=== PATIENT | female | born 1930 ===

== ENCOUNTER 2016-09-24 09:50 | Emergency (ER) | payer MEDICARE, MEDICAID ==
[2016-09-24 09:51] VITALS: BMI 35.2
[2016-09-24 10:39] VITALS: BP 140/85; PULSE 64; RESP 18; TEMP 98.2; O2SAT 100
[2016-09-24 12:17] LABS: BASO # 0.1 K/uL (0.0-0.2); EOS # 0.1 K/uL (0.0-0.7); EOS % 0.8 % (0.0-4.0); LYMPH # 1.5 K/uL (1.0-4.3); LYMPH % 18.9 % (20.0-40.0); MEAN CELL VOLUME 88.2 fl (81.0-99.0); MEAN CORPUSCULAR HEMOGLOBIN 29.2 pg (27.0-31.0); MEAN CORPUSCULAR HGB CONC 33.1 g/dL (33.0-37.0); MEAN PLATELET VOLUME 8.8 fl (7.2-11.7); MONO # 0.6 K/uL (0.0-0.8); MONO % 7.5 % (0.0-10.0); NEUT # 5.8 K/uL (1.8-7.0); NEUT % 71.8 % (50.0-75.0); NRBC % 0.2 % (0.0-0.0); RED CELL DISTRIBUTION WIDTH 15.2 % (11.5-14.5); WHITE BLOOD COUNT 8.1 K/uL (4.8-10.8)
[2016-09-24 12:20] LABS: CHLORIDE 101 mmol/L (98-107); RBC URINE 2 /hpf (0-3); SODIUM 141 mmol/l (132-148); URINE BACTERIA RARE (<OCC); URINE BILIRUBIN NEGATIVE (NEGATIVE); URINE BLOOD NEGATIVE (NEGATIVE); URINE COLOR YELLOW (YELLOW); URINE GLUCOSE (UA) NEG (Normal); URINE KETONE NEGATIVE (NEGATIVE); URINE LEUKOCYTE ESTERASE NEG Leu/uL (Negative); URINE PROTEIN NEGATIVE (NEGATIVE); URINE UROBILINOGEN 0.2-1.0 mg/dL (0.2-1.0); WBC URINE < 1 /hpf (0-5)
[2016-09-24 12:21] LABS: POTASSIUM 4.4 MMOL/L (3.6-5.0)
[2016-09-24 12:23] LABS: ALKALINE PHOSPHATASE 85 U/L (38-126); ALT/SGPT 25 U/L (9-52); AST/SGOT 33 U/L (14-36); BILIRUBIN,TOTAL 0.4 mg/dl (0.2-1.3); BLOOD UREA NITROGEN 16 mg/dl (7-17); CALCIUM 9.3 mg/dL (8.4-10.2); CARBON DIOXIDE 30 mmol/L (22-30); GFR AFRICAN-AMERICAN > 60; GLUCOSE,RANDOM 102 mg/dL (65-105); TOTAL PROTEIN 8.2 G/DL (6.3-8.2)
--- NOTE | 2016-09-24 12:29 | CT ---
PROCEDURE: CT HEAD WITHOUT CONTRAST. HISTORY: Behavioral changes COMPARISON: Noncontrast head CT performed 05/11/15 TECHNIQUE: Axial computed tomography images were obtained through the head/brain without intravenous contrast. Radiation dose: Total exam DLP = 863.94 mGy-cm. This CT exam was performed using one or more of the following dose reduction techniques: Automated exposure control, adjustment of the mA and/or kV according to patient size, and/or use of iterative reconstruction technique. FINDINGS: HEMORRHAGE: No intracranial hemorrhage. BRAIN: Diffuse atrophy with prominence of the ventricles and sulci noted. No mass effect or edema. Intracranial atherosclerosis. Scattered periventricular and subcortical white matter hypodensities, which are nonspecific, but often seen with chronic microvascular ischemic disease. 6 mm right internal capsule chronic lacunar infarct. Please note that MRI with diffusion imaging is more sensitive in the detection of acute ischemic event. VENTRICLES: No hydrocephalus. CALVARIUM: Unremarkable. PARANASAL SINUSES: Unremarkable as visualized. No significant inflammatory changes. MASTOID AIR CELLS: Small opacification/fluid within the right mastoid air cells. The left mastoid air cells appear clear. OTHER FINDINGS: None. IMPRESSION: Generalized atrophy. Nonspecific white matter changes. 6 mm right internal capsule chronic lacunar infarct. Small opacification/fluid within the right mastoid air cyst. Correlate clinically for mastoiditis.
--- NOTE | 2016-09-24 12:36 | ED PDOC ---
HPI: Psych/Substance Abuse Time Seen by Provider: 09/24/16 11:24 Chief Complaint (Nursing): Psychiatric Evaluation Chief Complaint (Provider): pura weber Additional Complaint(s): 85yo F in ED sent by nader-bj for pura weber. According to caio-pt has been having odd behaviors and odd speech patterns-saying things that are not actually happening or exists ie her is hiding drugs in house or a woman is sleeping on her bed with her and her . pt is also wandering around by herself at night. no recent infxn, pt denies: fever, chills, dysuria hematuira, PAULA, vision changes , CP, SOB, no known family hx of dementia. no recent traumatic events in household.pt is alert and oriented Past Medical History Reviewed: Historical Data, Nursing Documentation, Vital Signs Vital Signs: Last Vital Signs Temp 98.2 F 09/24/16 10:06 Pulse 64 09/24/16 10:06 Resp 18 09/24/16 10:06 BP 140/85 09/24/16 10:06 Pulse Ox 100 09/24/16 10:06 - Medical History PMH: Anxiety, Arthritis, Asthma, Atrial Fibrillation, Diabetes, Gastritis, HTN, Hypercholesterolemia Denies: Anemia, HIV, Chronic Kidney Disease - Surgical History Surgical History: Appendectomy (from previous chart, patient is unsure of what surguries she has had), Cholecystectomy (from previous chart, patient is unsure of what surguries she has had), Hernia Repair - Family History Family History: States: Unknown Family Hx - Home Medications Home Medications: Ambulatory Orders Medication Instructions Recorded Metoprolol Tartrate [Lopressor] 50 mg PO DAILY 03/20/14 Sitagliptin Phosphate [Januvia] 100 mg PO DAILY 03/20/14 Ergocalciferol (Vitamin D2) 50,000 unit PO QWK 01/23/15 [Vitamin D2] Gabapentin [Neurontin] 400 mg PO DAILY 05/11/15 Metformin HCl 850 mg PO BID 05/11/15 Montelukast [Singulair] 10 mg PO DAILY 07/23/15 Omeprazole 20 mg PO DAILY 07/23/15 Pravastatin Sodium [Pravachol] 40 mg PO HS 07/23/15 Pregabalin [Lyrica] 50 mg PO HS 07/23/15 Valsartan [Diovan] 80 mg PO DAILY 07/23/15 Amlodipine Besylate [Norvasc] 5 mg PO BID 09/06/15 Mecobal/Levomefolat Ca/B6 Phos 1 tab PO BID 10/22/15 [Foltanx Tablet] Ciprofloxacin HCl [Cipro] 500 mg PO Q12 #20 tablet 10/23/15 Metronidazole [Flagyl] 500 mg PO Q8H #30 tablet 10/23/15 amLODIPine [Norvasc] 5 mg PO DAILY #0 tab 10/23/15 - Allergies Allergies/Adverse Reactions: Allergies Allergy/AdvReac Type Severity Reaction Status Date / Time No Known Allergies Allergy Verified 09/24/16 10:22 Review of Systems ROS Statement: Except As Marked, All Systems Reviewed And Found Negative Constitutional: Negative for: Fever, Chills Eyes: Negative for: Vision Change Cardiovascular: Negative for: Chest Pain, Palpitations Gastrointestinal: Negative for: Abdominal Pain Skin: Negative for: Rash Physical Exam - Reviewed Nursing Documentation Reviewed: Yes Vital Signs Reviewed: Yes - Physical Exam Appears: Positive for: Well, Non-toxic, No Acute Distress Head Exam: Positive for: ATRAUMATIC, NORMAL INSPECTION, NORMOCEPHALIC Skin: Positive for: Normal Color, Warm, DRY Eye Exam: Positive for: EOMI, Normal appearance, PERRL ENT: Positive for: Normal ENT Inspection Cardiovascular/Chest: Positive for: Regular Rate, Rhythm Respiratory: Positive for: CNT, Normal Breath Sounds Gastrointestinal/Abdominal: Positive for: Normal Exam, Bowel Sounds, Soft Back: Positive for: Normal Inspection Extremity: Positive for: Normal ROM Neurologic/Psych: Positive for: Alert, 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 Negative for: Motor/Sensory Deficits - Laboratory Results Result Diagrams: 09/24/16 11:30 09/24/16 11:30 - ECG ECG Rhythm: Positive for: Normal QRS, Normal ST Segment, Sinus Rhythm, Premature Ventricular Contraction O2 Sat by Pulse Oximetry: 100 - Progress ED Course And Treament: pt will get medical work-up and evaluated by crisis Medical Decision Making Medical Decision Making: pt cleared by crisis-dx with dementia under MD Arthur pt with unremarkable labs at this time. pt will f/u with her primary for continuous care Disposition - Clinical Impression Clinical Impression: Dementia - Patient ED Disposition Is Patient to be Admitted: No Counseled Patient/Family Regarding: Studies Performed, Diagnosis, Need For Followup - Disposition Disposition: Routine/Home Disposition Time: 15:27 Condition: STABLE Instructions: Dementia (ED)
--- NOTE | 2016-09-26 18:24 | CARD ---
APPROVED REPORT EKG Measurement Heart [id number] NM [id number] <Conclusion> Sinus rhythm with occasional premature ventricular complexes Otherwise normal ECG
== END 2016-09-24 15:39 | disposition home or self-care (01) ==
LOC: H.ER 09:50
DX: F03.90 Unspecified dementia, unspecified severity, without behavioral disturbance, psychotic disturbance, mood disturbance, and anxiety (principal); F41.9 Anxiety disorder, unspecified; I10 Essential (primary) hypertension; E11.9 Type 2 diabetes mellitus without complications; E78.00 Pure hypercholesterolemia, unspecified
CPT/HCPCS: 70450; 80053; 81003; 82948; 85025; 99285; G0480

== ENCOUNTER 2016-09-30 16:59 | Emergency (ER) | payer MEDICARE, MEDICAID ==
[2016-09-30 16:59] VITALS: BMI 35.2
[2016-09-30 17:09] VITALS: BP 167/81; RESP 18; O2SAT 98
--- NOTE | 2016-09-30 17:36 | ED PDOC ---
HPI: Psych/Substance Abuse Time Seen by Provider: 09/30/16 17:12 Chief Complaint (Nursing): Psychiatric Evaluation Chief Complaint (Provider): Psychiatric Evaluation History Per: Family History/Exam Limitations: clinical condition (hx of dementia) Onset/Duration Of Symptoms: Days (today) Suicide/Self Injury Attempted (Context): None Involuntary Hold By: None Additional Complaint(s): Sandra Stapleton is an 85 year old female, with a past medical history inclusive of HTN, hypercholesterolemia, atrial fibrillation, type II diabetes and dementia, who presents to the ED on 09/30/16, as brought in by her family, for a psychiatric evaluation after she had expressed thoughts of harming her today. HPI/ROS are limited/unreliable secondary to patient's baseline mental status. PMD: Preeti Damico Past Medical History Reviewed: Historical Data, Nursing Documentation, Vital Signs Vital Signs: Last Vital Signs Temp Pulse Resp 18 09/30/16 17:05 BP 167/81 H 09/30/16 17:05 Pulse Ox 98 09/30/16 17:05 - Medical History PMH: Anxiety, Arthritis, Asthma, Atrial Fibrillation, Diabetes (type II), Gastritis, HTN, Hypercholesterolemia Denies: Anemia, Hepatitis, HIV, Chronic Kidney Disease, Seizures, Sexually Transmitted Disease Other PMH: cataracts - Surgical History Surgical History: Appendectomy (from previous chart, patient is unsure of what surguries she has had), Cholecystectomy (from previous chart, patient is unsure of what surguries she has had), Hernia Repair Other surgeries: cataract extraction, hysterectomy - Family History Family History: States: Unknown Family Hx - Living Arrangements Living Arrangements: With Family - Social History Current smoker - smoking cessation education provided: No Alcohol: None Drugs: Denies - Home Medications Home Medications: Ambulatory Orders Medication Instructions Recorded Metoprolol Tartrate [Lopressor] 50 mg PO DAILY 03/20/14 Sitagliptin Phosphate [Januvia] 100 mg PO DAILY 03/20/14 Ergocalciferol (Vitamin D2) 50,000 unit PO QWK 01/23/15 [Vitamin D2] Gabapentin [Neurontin] 400 mg PO DAILY 05/11/15 Metformin HCl 850 mg PO BID 05/11/15 Montelukast [Singulair] 10 mg PO DAILY 07/23/15 Omeprazole 20 mg PO DAILY 02/15/16 Pravastatin Sodium [Pravachol] 40 mg PO HS 07/23/15 Pregabalin [Lyrica] 50 mg PO HS 07/23/15 Valsartan [Diovan] 80 mg PO DAILY 07/23/15 Amlodipine Besylate [Norvasc] 5 mg PO BID 09/06/15 Mecobal/Levomefolat Ca/B6 Phos 1 tab PO BID 10/22/15 [Foltanx Tablet] Ciprofloxacin HCl [Cipro] 500 mg PO Q12 #20 tablet 10/23/15 Metronidazole [Flagyl] 500 mg PO Q8H #30 tablet 10/23/15 amLODIPine [Norvasc] 5 mg PO DAILY #0 tab 10/23/15 - Allergies Allergies/Adverse Reactions: Allergies Allergy/AdvReac Type Severity Reaction Status Date / Time No Known Allergies Allergy Verified 09/24/16 10:22 Review of Systems Review Of Systems: ROS cannot be obtained secondary to pt's inabilty to answer questions. Psych: Positive for: Other (expressed thoughts of harming ) Physical Exam - Reviewed Nursing Documentation Reviewed: Yes Vital Signs Reviewed: Yes - Physical Exam Appears: Positive for: Non-toxic, No Acute Distress Head Exam: Positive for: ATRAUMATIC, NORMOCEPHALIC Skin: Positive for: Normal Color, Warm, Dry Eye Exam: Positive for: Normal appearance, PERRL ENT: Positive for: Normal ENT Inspection Neck: Positive for: Normal, Painless ROM, Supple Cardiovascular/Chest: Positive for: Regular Rate, Rhythm. Negative for: Murmur Respiratory: Positive for: Normal Breath Sounds. Negative for: Respiratory Distress Back: Positive for: Normal Inspection Extremity: Positive for: Normal ROM (moving all extremities) Neurologic/Psych: Positive for: Alert (per family at baseline mental status) - ECG O2 Sat by Pulse Oximetry: 98 (RA) Pulse Ox Interpretation: Normal Medical Decision Making Medical Decision Makin:12 Initial Impression: psychiatric evaluation Initial Plan: * EKG * Labs * Alcohol Serum * Udip * Urine Drug Screen * Crisis Evaluation * Reevaluation Scribe Attestation: Documented by Aaliyah Seymour, acting as a scribe for Jamaal Patel MD. Provider Scribe Attestation: All medical record entries made by the Scribe were at my direction and personally dictated by me. I have reviewed the chart and agree that the record accurately reflects my personal performance of the history, physical exam, medical decision making, and the department course for this patient. I have also personally directed, reviewed, and agree with the discharge instructions and disposition. Disposition - Clinical Impression Clinical Impression: Dementia - Patient ED Disposition Is Patient to be Admitted: No Counseled Patient/Family Regarding: Diagnosis, Need For Followup - Disposition Referrals: [facility] [Outside] Disposition: Routine/Home Disposition Time: 18:05 Condition: FAIR Instructions: Dementia (ED)
[2016-09-30 22:55] LABS: BASO # 0.1 K/uL (0.0-0.2); EOS # 0.1 K/uL (0.0-0.7); EOS % 0.7 % (0.0-4.0); HEMATOCRIT 34.7 % (34.0-47.0); LYMPH # 1.9 K/uL (1.0-4.3); LYMPH % 22.6 % (20.0-40.0); MEAN CELL VOLUME 87.7 fl (81.0-99.0); MEAN CORPUSCULAR HEMOGLOBIN 29.1 pg (27.0-31.0); MEAN CORPUSCULAR HGB CONC 33.2 g/dL (33.0-37.0); MEAN PLATELET VOLUME 9.5 fl (7.2-11.7); MONO # 0.5 K/uL (0.0-0.8); MONO % 6.2 % (0.0-10.0); NEUT % 69.5 % (50.0-75.0); NRBC % 0.1 % (0.0-0.0); RED CELL DISTRIBUTION WIDTH 15.1 % (11.5-14.5); WHITE BLOOD COUNT 8.6 K/uL (4.8-10.8)
[2016-09-30 23:00] LABS: ALCOHOL SERUM < 10 mg/dl (0-10); ALKALINE PHOSPHATASE 94 U/L (38-126); ALT/SGPT 26 U/L (9-52); AST/SGOT 25 U/L (14-36); BILIRUBIN,TOTAL 0.3 mg/dl (0.2-1.3); BLOOD UREA NITROGEN 17 mg/dl (7-17); CALCIUM 9.6 mg/dL (8.4-10.2); CARBON DIOXIDE 25 mmol/L (22-30); CHLORIDE 103 mmol/L (98-107); GFR AFRICAN-AMERICAN > 60; GLUCOSE,RANDOM 77 mg/dL (65-105); POTASSIUM 4.2 MMOL/L (3.6-5.0); SODIUM 145 mmol/l (132-148)
== END 2016-09-30 18:10 | disposition home or self-care (01) ==
LOC: H.ER 16:59
DX: Z00.8 Encounter for other general examination (principal); F03.90 Unspecified dementia, unspecified severity, without behavioral disturbance, psychotic disturbance, mood disturbance, and anxiety; E11.9 Type 2 diabetes mellitus without complications; I10 Essential (primary) hypertension; J45.909 Unspecified asthma, uncomplicated
CPT/HCPCS: 80053; 85025; 99282; G0480

== ENCOUNTER 2016-10-30 11:59 | Observation (INO) | payer MEDICARE, MEDICAID ==
--- NOTE | 2016-10-30 15:00 | RAD ---
HISTORY: ER ORDER COMPARISON: Comparison chest 08/05/2015. TECHNIQUE: Chest PA and lateral FINDINGS: LUNGS: Slightly coarsened/ increased interstitial markings in part may be related to radiation technique with an and underpenetration. Possibility of sequela of reactive/ inflammatory airway disease to be excluded. Suspect minor biapical pleural thickening. PLEURA: No significant pleural effusion identified. No pneumothorax apparent. CARDIOVASCULAR: Heart size within range of normal. Aorta is slightly ectatic with calcification of the aortic knob. OSSEOUS STRUCTURES: Minor multilevel degenerative spondylosis of the thoracic spine. There is also mild dextroscoliosis centered in the lower thoracic region. Degenerative changes both shoulder girdles. VISUALIZED UPPER ABDOMEN: Normal. OTHER FINDINGS: None. IMPRESSION: Coarsened/ increased interstitial markings may in part be technical however rule out sequela of reactive/inflammatory airway disease.
[2016-10-30 15:21] LABS: BASO # 0.1 K/uL (0.0-0.2); BASO % 1.2 % (0.0-2.0); EOS # 0.1 K/uL (0.0-0.7); EOS % 1.1 % (0.0-4.0); HEMOGLOBIN 11.6 g/dL (12.0-16.0); LYMPH # 1.7 K/uL (1.0-4.3); LYMPH % 21.2 % (20.0-40.0); MEAN CORPUSCULAR HEMOGLOBIN 29.5 pg (27.0-31.0); MEAN CORPUSCULAR HGB CONC 33.5 g/dL (33.0-37.0); MEAN PLATELET VOLUME 9.1 fl (7.2-11.7); MONO # 0.7 K/uL (0.0-0.8); MONO % 8.2 % (0.0-10.0); NEUT # 5.6 K/uL (1.8-7.0); NEUT % 68.3 % (50.0-75.0); NRBC % 0.1 % (0.0-0.0); RBC 3.93 Mil/uL (3.80-5.20); RED CELL DISTRIBUTION WIDTH 15.2 % (11.5-14.5); WHITE BLOOD COUNT 8.2 K/uL (4.8-10.8)
[2016-10-30 15:35] LABS: SQUAMOUS EPITHIAL 1 /hpf (0-5); URINE BILIRUBIN NEGATIVE (NEGATIVE); URINE BLOOD NEGATIVE (NEGATIVE); URINE CLARITY CLEAR (Clear); URINE COLOR YELLOW (YELLOW); URINE GLUCOSE (UA) NEG (Normal); URINE LEUKOCYTE ESTERASE NEG Leu/uL (Negative); URINE NITRATE NEGATIVE (NEGATIVE); URINE PROTEIN NEGATIVE (NEGATIVE); URINE UROBILINOGEN 0.2-1.0 mg/dL (0.2-1.0)
[2016-10-30 15:39] LABS: ALB/GLOB RATIO 1.2 (1.0-2.1); ALBUMIN 4.3 g/dL (3.5-5.0); ALT/SGPT 25 U/L (9-52); AST/SGOT 23 U/L (14-36); BLOOD UREA NITROGEN 20 mg/dl (7-17); CALCIUM 9.2 mg/dL (8.4-10.2); GFR AFRICAN-AMERICAN > 60; GFR NON-AFRICAN AMERICAN > 60
--- NOTE | 2016-10-30 19:27 | CON ---
DATE: 10/30/2016 CHIEF COMPLAINT: Evaluation for worsening dementia and hallucinations. HISTORY OF PRESENT ILLNESS: This is an 85-year-old woman with past medical history of chronic atrial fibrillation, hypertension, dyslipidemia, type 2 diabetes mellitus, diabetic peripheral neuropathy, history of recurrent falls, who came into the hospital because she was expressing thoughts of seeing people, was agitated and combative, and therefore was called to evaluate for worsening dementia. She is alert, oriented to person and place, not much of month or year. Recall after 5 minutes is 0/3. Poor attention flat affect. She is depressed. She does get combative, apparently. According to the daughter's history, she apparently leaves the stove on, forgets to turn it off. She is forget ting intricate details of conversation and quite often loses her way around things. CT head showed n o acute intracranial abnormalities, just chronic lacunar infarct on the right side. Her blood pressu re is currently stable. Follows simple commands, moving all extremities, has arthritis of both knees . PAST MEDICAL HISTORY: History of chronic atrial fibrillation, hypertension, diabetes, cognitive impa irment, dyslipidemia, arthritis, diabetic peripheral neuropathy, history of falls. REVIEW OF SYSTEMS: A 14-point review of systems the HPI. SOCIAL HISTORY: No illicit drug use, smoking, or ETOH abuse. FAMILY HISTORY: Noncontributory. ALLERGIES: No known drug allergies. MEDICATIONS: Reviewed via nurse's reconciliation sheet. LABORATORY DATA: Sodium is 141, potassium 4.2, chloride of 103, carbon dioxide 25, BUN of 20, creati nine 0.7, random glucose 83. ASSESSMENT AND PLAN: This is an 85-year-old woman with history of chronic atrial fibrillation, histo ry of diabetes, diabetic peripheral neuropathy, hypertension, dyslipidemia, arthritis, who presented with worsening memory of getting combative, hallucinating, forgetting intricate details of thin gs that she has had conversations with people, forgetting to turn off the stove, loses her way home. She was also having hallucinations and having more depressed affect. I was called to evaluate. I fe el like she is having more of a mild dementia, probably vascular type with behavioral disturbance. A t this time, recommend: 1. Seroquel 25 mg p.o. at bedtime for agitation and Ativan 1 mg p.r.n. 2. Gabapentin p.o. q. 8 hours for neuropathic pain as well as to calm down her anxiety. 3. Psychiatric consult. 4. Keep the blood pressure between 140 and 180 . 5. She should be on aspirin 81 mg for stroke prevention. 6. To get physical therapy evaluation and could consider long-term care and/or a home health aide, t alk with case management. Thank you for this consult. We will sign off. Misael Saldaña MD cc: [id number] TT: 10/30/2016 19:26:59 Confirmation # [id number] Dictation # [id number] ln
[2016-10-31 08:41] LABS: % IRON SATURATION 31 % (20-55); TOTAL IRON BINDING CAPACITY 321 ug/dL (250-450)
[2016-10-31 08:43] LABS: IRON 99 ug/dL (37-170)
[2016-10-31] MEDS ORDERED: Pantoprazole 40 mg EC Tab PO SCH (09:00)
[2016-10-31 09:02] LABS: T3 1.12 nmol/L (1.49-2.60)
[2016-10-31 09:06] LABS: FERRITIN 10.4 ng/mL
--- NOTE | 2016-10-31 14:20 | CP.PCM.CON ---
History of Present Illness - History of Present Illness History of Present Illness: psychiatry consult ordered by: dr campbell reason: worsening dementia with hallucinations cc: i want to go home. hpi: 85 yo female living with her in [place]. is visually and hearing impaired. pt was seen with surg rn. i reviewed dr. cooley consult and i spoke to pt's son and daughter. there was no documentation yet from dr. shaw pt has history of dementia, but no previous psychiatric care until recently when she was taken to dr. villanueva who advised family get poa. pt has become more paranoid, complaining of seeing people break into her home, allegedly hearing voices. recently pt was holding a knife to her chest and making threats to harm self. per reports pt has been leaving the stove on. it is apparent pt and cannot safely care for self. the patient told this ad writer that he was here in the hospital earlier and had climbed in the window to see her. she is confused. currently she is on a 1:1, but appears to be redirectable. past psych: family denies any previous history of psychiatric/behavioral problems or suicidal/self injurious behaviors. medical: as per dr. shaw. dx with dementia, seen by dr. man. social history: lives alone with in [place]. is marshallese speaking, from [place] originally. no apparent abuse/legal/substance abuse history mse: pt is alert, oriented to self, knows she is in a hospital. she cannot name the date or year and states- "you know it's the highest year we have. she appears to have some gross deficits in memory, but still recognizes family. thoughts are illogical. she denies making suicidal threats, she denies any aggressive behaviors. pt has some delusional thoughts and is somewhat paranoid. she does not appear to be actively hallucinating. she has poor i/j. poor impulse control. assessment: dementia, with behavioral disturbance recommendation: dr. man has started seroquel which seems appropriate family has poa and wants pt to be admitted to step unit to help stabilize behavioral and psychotic components of her illness addiction social worker to review power of associate attorney documentation and help facilitate transfer to step unit would continue 1:1 while on medical floor Past Patient History - Infectious Disease Hx of Infectious Diseases: None - Tetanus Immunizations Tetanus Immunization: Unknown - Past Medical History & Family History Past Medical History?: Yes - Past Social History Smoking Status: Never Smoked - CARDIAC Hx Cardiac Disorders: Yes Hx Atrial Fibrillation: Yes Hx Hypercholesterolemia: Yes Hx Hypertension: Yes - PULMONARY Hx Respiratory Disorders: Yes Hx Asthma: Yes - NEUROLOGICAL Hx Neurological Disorder: Yes Hx Dementia: Yes Hx Dizziness: Yes - HEENT Hx HEENT Problems: Yes Other/Comment: glasses - RENAL Hx Chronic Kidney Disease: No - ENDOCRINE/METABOLIC Hx Endocrine Disorders: Yes (dm type II) Hx Diabetes Mellitus Type 2: Yes - HEMATOLOGICAL/ONCOLOGICAL Hx Blood Disorders: No - INTEGUMENTARY Hx Dermatological Problems: No - MUSCULOSKELETAL/RHEUMATOLOGICAL Hx Musculoskeletal Disorders: Yes Hx Arthritis: Yes Hx Falls: No Hx Osteoarthritis: Yes - GASTROINTESTINAL Hx Gastrointestinal Disorders: Yes Hx Diverticulitis: Yes Hx Gastritis: Yes - GENITOURINARY/GYNECOLOGICAL Hx Genitourinary Disorders: Yes Hx Incontinence: Yes - PSYCHIATRIC Hx Psychophysiologic Disorder: Yes Hx Anxiety: Yes Hx Substance Use: No - SURGICAL HISTORY Hx Surgeries: Yes Hx Appendectomy: Yes (from previous chart, patient is unsure of what surguries she has had) Hx Cholecystectomy: Yes (from previous chart, patient is unsure of what surguries she has had) - ANESTHESIA Hx Anesthesia: Yes Hx Anesthesia Reactions: No Hx Malignant Hyperthermia: No Has any member of the family had a problem w/ anesthesia?: No Meds Allergies/Adverse Reactions: Allergies Allergy/AdvReac Type Severity Reaction Status Date / Time No Known Allergies Allergy Verified 09/24/16 10:22 - Medications Medications: Current Medications Amlodipine Besylate (Norvasc) 5 mg PO DAILY [facility] Gabapentin (Neurontin) 400 mg PO [facility] Last Admin: 10/30/16 22:10 Dose: 400 mg Lorazepam (Ativan) 1 mg PO BID PRN PRN Reason: Agitation Metformin HCl (Glucophage) 850 mg PO BID [facility] Last Admin: 10/31/16 08:35 Dose: 850 mg Metoprolol Tartrate (Lopressor) 50 mg PO DAILY [facility] Last Admin: 10/31/16 08:35 Dose: 50 mg Pantoprazole Sodium (Protonix Ec Tab) 40 mg PO DAILY [facility] Last Admin: 10/31/16 08:35 Dose: 40 mg Quetiapine Fumarate (Seroquel) 25 mg PO [facility] Last Admin: 10/30/16 22:10 Dose: 25 mg Sitagliptin Phosphate (Januvia) 100 mg PO DAILY [facility] Last Admin: 10/31/16 08:35 Dose: 100 mg Results - Vital Signs Recent Vital Signs: Last Vital Signs Temp 98.1 F 10/31/16 08:28 Pulse 66 10/31/16 08:28 Resp 18 10/31/16 08:28 BP 144/75 10/31/16 08:28 Pulse Ox 95 10/31/16 08:28 - Labs Result Diagrams: 10/30/16 13:25 10/30/16 13:25 Labs: Laboratory Results - last 24 hr 10/30/16 10/30/16 10/30/16 13:02 13:25 13:25 WBC 8.2 RBC 3.93 Hgb 11.6 L Hct 34.6 MCV 88.0 MCH 29.5 MCHC 33.5 RDW 15.2 H Plt Count 306 MPV 9.1 Neut % (Auto) 68.3 Lymph % (Auto) 21.2 Gentry % (Auto) 8.2 Eos % (Auto) 1.1 Baso % (Auto) 1.2 Neut # 5.6 Lymph # 1.7 Gentry # 0.7 Eos # 0.1 Baso # 0.1 Sodium Potassium Chloride Carbon Dioxide Anion Gap BUN Creatinine Est GFR ( Amer) Est GFR (Non-Af Amer) POC Glucose (mg/dL) 101 Random Glucose Calcium Iron TIBC % Saturation Ferritin Total Bilirubin AST ALT Alkaline Phosphatase Total Protein Albumin Globulin Albumin/Globulin Ratio Vitamin B12 Total T3 TSH 3rd Generation Urine Color Yellow Urine Clarity Clear Urine pH 7.0 Ur Specific Prospect 1.010 Urine Protein Negative Urine Glucose (UA) Neg Urine Ketones Negative Urine Blood Negative Urine Nitrate Negative Urine Bilirubin Negative Urine Urobilinogen 0.2-1.0 Ur Leukocyte Esterase Neg Urine RBC (Auto) < 1 Urine Microscopic WBC < 1 Ur Squamous Epith Cells 1 10/30/16 10/30/16 10/31/16 13:25 22:21 07:11 WBC RBC Hgb Hct MCV MCH MCHC RDW Plt Count MPV Neut % (Auto) Lymph % (Auto) Gentry % (Auto) Eos % (Auto) Baso % (Auto) Neut # Lymph # Gentry # Eos # Baso # Sodium 141 Potassium 4.2 Chloride 103 Carbon Dioxide 25 Anion Gap 17 BUN 20 H Creatinine 0.7 Est GFR ( Amer) > 60 Est GFR (Non-Af Amer) > 60 POC Glucose (mg/dL) 128 H 120 H Random Glucose 83 Calcium 9.2 Iron TIBC % Saturation Ferritin Total Bilirubin 0.3 AST 23 ALT 25 Alkaline Phosphatase 85 Total Protein 8.1 Albumin 4.3 Globulin 3.7 Albumin/Globulin Ratio 1.2 Vitamin B12 Total T3 TSH 3rd Generation Urine Color Urine Clarity Urine pH Ur Specific Prospect Urine Protein Urine Glucose (UA) Urine Ketones Urine Blood Urine Nitrate Urine Bilirubin Urine Urobilinogen Ur Leukocyte Esterase Urine RBC (Auto) Urine Microscopic WBC Ur Squamous Epith Cells 10/31/16 10/31/16 10/31/16 07:30 07:30 11:00 WBC RBC Hgb Hct MCV MCH MCHC RDW Plt Count MPV Neut % (Auto) Lymph % (Auto) Gentry % (Auto) Eos % (Auto) Baso % (Auto) Neut # Lymph # Gentry # Eos # Baso # Sodium Potassium Chloride Carbon Dioxide Anion Gap BUN Creatinine Est GFR ( Amer) Est GFR (Non-Af Amer) POC Glucose (mg/dL) 146 H Random Glucose Calcium Iron 99 TIBC 321 % Saturation 31 Ferritin 10.4 Total Bilirubin AST ALT Alkaline Phosphatase Total Protein Albumin Globulin Albumin/Globulin Ratio Vitamin B12 346 Total T3 1.12 L TSH 3rd Generation 1.77 Urine Color Urine Clarity Urine pH Ur Specific Prospect Urine Protein Urine Glucose (UA) Urine Ketones Urine Blood Urine Nitrate Urine Bilirubin Urine Urobilinogen Ur Leukocyte Esterase Urine RBC (Auto) Urine Microscopic WBC Ur Squamous Epith Cells
--- NOTE | 2016-10-31 15:14 | CP.PCM.HP ---
History of Present Illness - History of Present Illness History of Present Illness: 85yo F with PMHx Afib, HTN, DM, HLD, neuropathy admitted for incraesed risk of falls 2/2 worsening dementia. POA is son. history per daughters and concern for pt safety. AAOx2 PMHx: as above SHx: NC Allergies: NKDA Social hx: denies x3 Present on Admission - Present on Admission Any Indicators Present on Admission: No Review of Systems - Review of Systems All systems: reviewed and no additional remarkable complaints except Past Patient History - Infectious Disease Hx of Infectious Diseases: None - Tetanus Immunizations Tetanus Immunization: Unknown - Past Medical History & Family History Past Medical History?: Yes - Past Social History Smoking Status: Never Smoked - CARDIAC Hx Cardiac Disorders: Yes Hx Atrial Fibrillation: Yes Hx Hypercholesterolemia: Yes Hx Hypertension: Yes - PULMONARY Hx Respiratory Disorders: Yes Hx Asthma: Yes - NEUROLOGICAL Hx Neurological Disorder: Yes Hx Dementia: Yes Hx Dizziness: Yes - HEENT Hx HEENT Problems: Yes Other/Comment: glasses - RENAL Hx Chronic Kidney Disease: No - ENDOCRINE/METABOLIC Hx Endocrine Disorders: Yes (dm type II) Hx Diabetes Mellitus Type 2: Yes - HEMATOLOGICAL/ONCOLOGICAL Hx Blood Disorders: No - INTEGUMENTARY Hx Dermatological Problems: No - MUSCULOSKELETAL/RHEUMATOLOGICAL Hx Musculoskeletal Disorders: Yes Hx Arthritis: Yes Hx Falls: No Hx Osteoarthritis: Yes - GASTROINTESTINAL Hx Gastrointestinal Disorders: Yes Hx Diverticulitis: Yes Hx Gastritis: Yes - GENITOURINARY/GYNECOLOGICAL Hx Genitourinary Disorders: Yes Hx Incontinence: Yes - PSYCHIATRIC Hx Psychophysiologic Disorder: Yes Hx Anxiety: Yes Hx Substance Use: No - SURGICAL HISTORY Hx Surgeries: Yes Hx Appendectomy: Yes (from previous chart, patient is unsure of what surguries she has had) Hx Cholecystectomy: Yes (from previous chart, patient is unsure of what surguries she has had) - ANESTHESIA Hx Anesthesia: Yes Hx Anesthesia Reactions: No Hx Malignant Hyperthermia: No Has any member of the family had a problem w/ anesthesia?: No Meds Home Medications: Home Medication List Medication Instructions Recorded Confirmed Type Gabapentin [Neurontin] 400 mg PO HS cap 10/31/16 Rx QUEtiapine [Seroquel] 25 mg PO HS tab 10/31/16 Rx Allergies/Adverse Reactions: Allergies Allergy/AdvReac Type Severity Reaction Status Date / Time No Known Allergies Allergy Verified 09/24/16 10:22 Physical Exam - Head Exam Head Exam: ATRAUMATIC, NORMAL INSPECTION - Eye Exam Eye Exam: Normal appearance - ENT Exam ENT Exam: Mucous Membranes Moist - Neck Exam Neck exam: Positive for: Normal Inspection - Respiratory Exam Respiratory Exam: Clear to Auscultation Bilateral - Cardiovascular Exam Cardiovascular Exam: Irregular Rhythm - GI/Abdominal Exam GI & Abdominal Exam: Soft - Extremities Exam Extremities exam: Positive for: normal inspection - Back Exam Back exam: NORMAL INSPECTION - Neurological Exam Neurological exam: Alert Additional comments: AAOx2 - Psychiatric Exam Psychiatric exam: Normal Affect, Normal Mood - Skin Skin Exam: Dry, Warm Results - Vital Signs Recent Vital Signs: Last Vital Signs Temp 98.1 F 10/31/16 08:28 Pulse 66 10/31/16 08:28 Resp 18 10/31/16 08:28 BP 144/75 10/31/16 08:28 Pulse Ox 95 10/31/16 08:28 - Labs Result Diagrams: 10/30/16 13:25 10/30/16 13:25 Labs: Laboratory Results - last 24 hr 10/30/16 10/30/16 10/30/16 13:02 13:25 13:25 WBC 8.2 RBC 3.93 Hgb 11.6 L Hct 34.6 MCV 88.0 MCH 29.5 MCHC 33.5 RDW 15.2 H Plt Count 306 MPV 9.1 Neut % (Auto) 68.3 Lymph % (Auto) 21.2 Island % (Auto) 8.2 Eos % (Auto) 1.1 Baso % (Auto) 1.2 Neut # 5.6 Lymph # 1.7 Island # 0.7 Eos # 0.1 Baso # 0.1 Sodium Potassium Chloride Carbon Dioxide Anion Gap BUN Creatinine Est GFR ( Amer) Est GFR (Non-Af Amer) POC Glucose (mg/dL) 101 Random Glucose Calcium Iron TIBC % Saturation Ferritin Total Bilirubin AST ALT Alkaline Phosphatase Total Protein Albumin Globulin Albumin/Globulin Ratio Vitamin B12 Total T3 TSH 3rd Generation Urine Color Yellow Urine Clarity Clear Urine pH 7.0 Ur Specific [place] 1.010 Urine Protein Negative Urine Glucose (UA) Neg Urine Ketones Negative Urine Blood Negative Urine Nitrate Negative Urine Bilirubin Negative Urine Urobilinogen 0.2-1.0 Ur Leukocyte Esterase Neg Urine RBC (Auto) < 1 Urine Microscopic WBC < 1 Ur Squamous Epith Cells 1 05/10/30/16 10/31/16 13:25 22:21 07:11 WBC RBC Hgb Hct MCV MCH MCHC RDW Plt Count MPV Neut % (Auto) Lymph % (Auto) Island % (Auto) Eos % (Auto) Baso % (Auto) Neut # Lymph # Island # Eos # Baso # Sodium 141 Potassium 4.2 Chloride 103 Carbon Dioxide 25 Anion Gap 17 BUN 20 H Creatinine 0.7 Est GFR ( Amer) > 60 Est GFR (Non-Af Amer) > 60 POC Glucose (mg/dL) 128 H 120 H Random Glucose 83 Calcium 9.2 Iron TIBC % Saturation Ferritin Total Bilirubin 0.3 AST 23 ALT 25 Alkaline Phosphatase 85 Total Protein 8.1 Albumin 4.3 Globulin 3.7 Albumin/Globulin Ratio 1.2 Vitamin B12 Total T3 TSH 3rd Generation Urine Color Urine Clarity Urine pH Ur Specific [place] Urine Protein Urine Glucose (UA) Urine Ketones Urine Blood Urine Nitrate Urine Bilirubin Urine Urobilinogen Ur Leukocyte Esterase Urine RBC (Auto) Urine Microscopic WBC Ur Squamous Epith Cells 10/31/16 10/31/16 10/31/16 07:30 07:30 11:00 WBC RBC Hgb Hct MCV MCH MCHC RDW Plt Count MPV Neut % (Auto) Lymph % (Auto) Island % (Auto) Eos % (Auto) Baso % (Auto) Neut # Lymph # Island # Eos # Baso # Sodium Potassium Chloride Carbon Dioxide Anion Gap BUN Creatinine Est GFR ( Amer) Est GFR (Non-Af Amer) POC Glucose (mg/dL) 146 H Random Glucose Calcium Iron 99 TIBC 321 % Saturation 31 Ferritin 10.4 Total Bilirubin AST ALT Alkaline Phosphatase Total Protein Albumin Globulin Albumin/Globulin Ratio Vitamin B12 346 Total T3 1.12 L TSH 3rd Generation 1.77 Urine Color Urine Clarity Urine pH Ur Specific [place] Urine Protein Urine Glucose (UA) Urine Ketones Urine Blood Urine Nitrate Urine Bilirubin Urine Urobilinogen Ur Leukocyte Esterase Urine RBC (Auto) Urine Microscopic WBC Ur Squamous Epith Cells Assessment & Plan - Assessment and Plan (Free Text) Assessment: 85yo F with PMHx Afib, HTN, DM, HLD, neuropathy admitted for incraesed risk of falls 2/2 worsening dementia. -psych c/s -neuro c/s -SW c/s -c/w home meds Decision To Admit - Pt Status Changed To: Hospital Disposition Of: Inpatient - Admit Certification Admit to Inpatient:: After my assessment, the patient will require hospitalization for at least two midnights. This is because of the severity of symptoms shown, intensity of services needed, and/or the medical risk in this patient being treated as an outpatient. - . Bed Request Type: Med/Surg Admitting Physician: Hawk Bruce
--- NOTE | 2016-10-31 15:21 | CP.PCM.DIS ---
Provider - Provider Date of Admission: 10/30/16 12:44 Attending physician: Hawk Bruce MD Time Spent in preparation of Discharge (in minutes): 20 Diagnosis - Discharge Diagnosis (1) Atrial fibrillation Status: Acute (2) Dementia Status: Acute (3) DM (diabetes mellitus) Status: Chronic (4) Hypercholesteremia Status: Chronic (5) Hypertension Status: Chronic Hospital Course - Lab Results Lab Results: Most Recent Lab Values WBC 8.2 K/uL (4.8-10.8) 10/30/16 13:25 RBC 3.93 Mil/uL (3.80-5.20) 10/30/16 13:25 Hgb 11.6 g/dL (12.0-16.0) L 10/30/16 13:25 Hct 34.6 % (34.0-47.0) 10/30/16 13:25 MCV 88.0 fl (81.0-99.0) 10/30/16 13:25 MCH 29.5 pg (27.0-31.0) 10/30/16 13:25 MCHC 33.5 g/dL (33.0-37.0) 10/30/16 13:25 RDW 15.2 % (11.5-14.5) H 10/30/16 13:25 Plt Count 306 K/uL (130-400) 10/30/16 13:25 MPV 9.1 fl (7.2-11.7) 10/30/16 13:25 Neut % (Auto) 68.3 % (50.0-75.0) 10/30/16 13:25 Lymph % (Auto) 21.2 % (20.0-40.0) 10/30/16 13:25 Moore % (Auto) 8.2 % (0.0-10.0) 10/30/16 13:25 Eos % (Auto) 1.1 % (0.0-4.0) 10/30/16 13:25 Baso % (Auto) 1.2 % (0.0-2.0) 10/30/16 13:25 Neut # 5.6 K/uL (1.8-7.0) 10/30/16 13:25 Lymph # 1.7 K/uL (1.0-4.3) 10/30/16 13:25 Moore # 0.7 K/uL (0.0-0.8) 10/30/16 13:25 Eos # 0.1 K/uL (0.0-0.7) 10/30/16 13:25 Baso # 0.1 K/uL (0.0-0.2) 10/30/16 13:25 Sodium 141 mmol/l (132-148) 10/30/16 13:25 Potassium 4.2 MMOL/L (3.6-5.0) 10/30/16 13:25 Chloride 103 mmol/L (98-107) 10/30/16 13:25 Carbon Dioxide 25 mmol/L (22-30) 10/30/16 13:25 Anion Gap 17 (10-20) 10/30/16 13:25 BUN 20 mg/dl (7-17) H 10/30/16 13:25 Creatinine 0.7 mg/dL (0.7-1.2) 10/30/16 13:25 Est GFR ( Amer) > 60 10/30/16 13:25 Est GFR (Non-Af Amer) > 60 10/30/16 13:25 POC Glucose (mg/dL) 146 mg/dL (65-110) H 10/31/16 11:00 Random Glucose 83 mg/dL (65-105) 10/30/16 13:25 Calcium 9.2 mg/dL (8.4-10.2) 10/30/16 13:25 Iron 99 ug/dL (37-170) 10/31/16 07:30 TIBC 321 ug/dL (250-450) 10/31/16 07:30 % Saturation 31 % (20-55) 10/31/16 07:30 Ferritin 10.4 ng/mL 10/31/16 07:30 Total Bilirubin 0.3 mg/dl (0.2-1.3) 10/30/16 13:25 AST 23 U/L (14-36) 10/30/16 13:25 ALT 25 U/L (9-52) 10/30/16 13:25 Alkaline Phosphatase 85 U/L (38-126) 10/30/16 13:25 Total Protein 8.1 G/DL (6.3-8.2) 10/30/16 13:25 Albumin 4.3 g/dL (3.5-5.0) 10/30/16 13:25 Globulin 3.7 gm/dL (2.2-3.9) 10/30/16 13:25 Albumin/Globulin Ratio 1.2 (1.0-2.1) 10/30/16 13:25 Vitamin B12 346 pg/mL (239-931) 10/31/16 07:30 Total T3 1.12 nmol/L (1.49-2.60) L 10/31/16 07:30 TSH 3rd Generation 1.77 mIU/ML (0.46-4.68) 10/31/16 07:30 Urine Color Yellow (YELLOW) 10/30/16 13:25 Urine Clarity Clear (Clear) 10/30/16 13:25 Urine pH 7.0 (5.0-8.0) 10/30/16 13:25 Ur Specific [place] 1.010 (1.003-1.030) 10/30/16 13:25 Urine Protein Negative mg/dL (NEGATIVE) 10/30/16 13:25 Urine Glucose (UA) Neg mg/dL (Normal) 10/30/16 13:25 Urine Ketones Negative mg/dL (NEGATIVE) 10/30/16 13:25 Urine Blood Negative (NEGATIVE) 10/30/16 13:25 Urine Nitrate Negative (NEGATIVE) 10/30/16 13:25 Urine Bilirubin Negative (NEGATIVE) 10/30/16 13:25 Urine Urobilinogen 0.2-1.0 mg/dL (0.2-1.0) 10/30/16 13:25 Ur Leukocyte Esterase Neg Tamara/uL (Negative) 10/30/16 13:25 Urine RBC (Auto) < 1 /hpf (0-3) 10/30/16 13:25 Urine Microscopic WBC < 1 /hpf (0-5) 10/30/16 13:25 Ur Squamous Epith Cells 1 /hpf (0-5) 10/30/16 13:25 - Hospital Course Hospital Course: 85yo F with PMHx Afib, HTN, DM, HLD, neuropathy admitted for incraesed risk of falls 2/2 worsening dementia. c/s neuro Dr. Saldaña who recommended gabapentin and seroquel. Psych Dr. Bates c/s who recommended inpatient [facility] admission voluntarily and POA agreed. Pt d/c to [facility]. Discharge Exam - Head Exam Head Exam: ATRAUMATIC, NORMAL INSPECTION Discharge Plan - Follow Up Plan Condition: GOOD Disposition: DISCHARGE TO PSYCH HOSPITAL Instructions: Dementia (GEN)
[2016-10-31 16:22] VITALS: BP 142/67; PULSE 62; RESP 20; TEMP 98.2; O2SAT 98
[2016-10-31 22:08] LABS: FOLATE 14.3 ng/mL
== END 2016-10-31 18:04 ==
LOC: H.ER 11:59 → H.EDDOWN 11:59 → H.ERHOLD 12:44 → INTOOBSV 12:44 → H.MEDSURG1 16:11
PROVIDERS: ADMIT Family Medicine; ATTEND Family Medicine
DX: F03.91 Unspecified dementia, unspecified severity, with behavioral disturbance (principal); E11.42 Type 2 diabetes mellitus with diabetic polyneuropathy; I48.2 Chronic atrial fibrillation; I10 Essential (primary) hypertension; E78.5 Hyperlipidemia, unspecified; E78.00 Pure hypercholesterolemia, unspecified; J45.909 Unspecified asthma, uncomplicated; F41.9 Anxiety disorder, unspecified; R32 Unspecified urinary incontinence; Z91.81 History of falling; F32.9 Major depressive disorder, single episode, unspecified; Z86.73 Personal history of transient ischemic attack (TIA), and cerebral infarction without residual deficits; R45.1 Restlessness and agitation; M17.0 Bilateral primary osteoarthritis of knee; F22 Delusional disorders
CPT/HCPCS: 36415; 71020; 80053; 81003; 82607; 82728; 82746; 82948; 83540; 83550; 84443; 84480; 85025; 97161; 99285; G0378; G8978; G8979

== ENCOUNTER 2016-10-31 17:20 | Inpatient (IN) | payer MEDICARE, MEDICAID ==
[2016-10-31 18:30] VITALS: BMI 34.0
[2016-10-31] MEDS ORDERED: Magnesium Hydroxide Susp 30 ml UD PO PRN (20:55)
[2016-10-31] MEDS ORDERED: Alum-Mag Hydrox-Simethicone Susp (30 mL) PO PRN (20:55)
[2016-10-31] MEDS ORDERED: Bismuth Subsalicylate 262 mg/15 ml Sus (240 ml) PO PRN (20:55)
[2016-11-01] MEDS ORDERED: Albuterol 0.083% Inhal Sol (2.5 mg/3 mL) UD INH ONE (00:42)
[2016-11-01] MEDS: Pantoprazole 20 mg EC Tab PO SCH (09:36)
[2016-11-01] MEDS: Albuterol 0.083% Inhal Sol (2.5 mg/3 mL) UD INH SCH ×3 (09:37→19:29)
--- NOTE | 2016-11-01 10:02 | PCM.PYCHPN ---
Psychiatric Progress Note - Psychiatric Progress Note Patient seen today, length of contact: chart reviewed, discussed with team, 35 min session Patient Chief Complaint: changes in cognition chronic, changes in behavior, paranoia Problems Identified/Issues Discussed: alteration in cognition, alteration in self care, alteration in oxygenation, behavioral changes Medical Problems: abnormal t3 per chart Diagnostic Results: per psychiatry per medicine per nursing per social work DSM 5 Symptoms Update: pt was reportedly paranoid, agitated not responding to verbal redirection and required the administration of 1 mg IM lorazepam (vital signs reportedly stable) Medication Change: No (pt recently started on seroquel 25mg po hs continue to assess ) Medical Record Reviewed: Yes Consults ordered or reviewed: pt of dr campbell, per team dr campbell is aware Mental Status Examination - Cognitive Function Orientation: Person Memory: Impaired Attention: Poor Concentration: Poor Association: Loose Fund of Knowledge: Poor Decription of patient's judgement and insights: impaired - Mood Mood: Anxious - Affect Additional comments: somewhat labile - Speech Speech: Soft Additional comments: pt noted to be without dental plates - Language Additional comments: Speaks Burmese and Czech - Formal Thought Process Formal Thought Process: Paranoia - Suicidal Ideation Suicidal Ideation: No - Homicidal Ideation Homicidal Ideation: No Goal/Treatment Plan - Goal/Treatment Plan Need for Continued Stay: Remain at risks for inpatient hospitalization, Failed transitioning, Severe functional impairment Progress Toward Problem(s) and Goals/Treatment Plan: inpt milieu vital signs and observation per protocol and per clinical status prn use of lorazepam to be used judiciously 2nd to respiratory status 1 to 1 for safety PRN access to Burmese Speaking staff falls precautions continue to assess response to seroquel and adjust per clinical staus Estimated Date of D/C: 11/05/16 - Smoking Cessation Smoking Cessation Initiated: No Reason for not providing: deferred
--- NOTE | 2016-11-01 14:07 | CP.PCM.CON ---
History of Present Illness - History of Present Illness History of Present Illness: This is an 85 y/o female admitted from medical floor for increasing change in behavior. Has a hx of dementia HTN DM 2. Review of Systems - Psychiatric Psychiatric: Behavioral Changes, Change in Appetite, Confusion Past Patient History - Infectious Disease Hx of Infectious Diseases: None - Tetanus Immunizations Tetanus Immunization: Unknown - Past Medical History & Family History Past Medical History?: Yes - Past Social History Smoking Status: Never Smoked - CARDIAC Hx Cardiac Disorders: Yes Hx Atrial Fibrillation: Yes Hx Hypercholesterolemia: Yes Hx Hypertension: Yes - PULMONARY Hx Respiratory Disorders: Yes Hx Asthma: Yes Hx Bronchitis: Yes - NEUROLOGICAL Hx Neurological Disorder: Yes Hx Dementia: Yes Hx Dizziness: Yes - HEENT Hx HEENT Problems: Yes Other/Comment: glasses - RENAL Hx Chronic Kidney Disease: No - ENDOCRINE/METABOLIC Hx Endocrine Disorders: Yes (dm type II) Hx Diabetes Mellitus Type 2: Yes - HEMATOLOGICAL/ONCOLOGICAL Hx Blood Disorders: No - INTEGUMENTARY Hx Dermatological Problems: No - MUSCULOSKELETAL/RHEUMATOLOGICAL Hx Falls: No Hx Osteoarthritis: Yes - GASTROINTESTINAL Hx Gastrointestinal Disorders: Yes Hx Diverticulitis: Yes Hx Gastritis: Yes - GENITOURINARY/GYNECOLOGICAL Hx Genitourinary Disorders: Yes Hx Incontinence: Yes - PSYCHIATRIC Hx Anxiety: Yes Hx Depression: Yes Hx Substance Use: No - SURGICAL HISTORY Hx Surgeries: Yes Hx Appendectomy: Yes (from previous chart, patient is unsure of what surguries she has had) Hx Cholecystectomy: Yes (from previous chart, patient is unsure of what surguries she has had) - ANESTHESIA Hx Anesthesia: Yes Hx Anesthesia Reactions: No Hx Malignant Hyperthermia: No Meds Allergies/Adverse Reactions: Allergies Allergy/AdvReac Type Severity Reaction Status Date / Time No Known Allergies Allergy Verified 09/24/16 10:22 - Medications Medications: Current Medications Acetaminophen (Tylenol 325mg Tab) 650 mg PO Q4 PRN PRN Reason: Pain, moderate (4-7) Al Hydrox/Mg Hydrox/Simethicone (Maalox Plus 30 Ml) 30 ml PO Q4 PRN PRN Reason: Dyspepsia Albuterol Sulfate (Albuterol 0.083% Inhal [place] (2.5 Mg/3 Ml) Ud) 2.5 mg INH RTID [facility] Last Admin: 11/01/16 09:37 Dose: Not Given Amlodipine Besylate (Norvasc) 5 mg PO DAILY [facility] Last Admin: 11/01/16 09:36 Dose: 5 mg Bismuth Subsalicylate (Pepto-Bismol) 524 mg PO Q4 PRN PRN Reason: Diarrhea Gabapentin (Neurontin) 400 mg PO [facility] Last Admin: 10/31/16 22:36 Dose: 400 mg Lorazepam (Ativan) 0.5 mg PO HS PRN PRN Reason: Insomnia Stop: 11/14/16 20:56 Lorazepam (Ativan) 0.5 mg PO Q6 PRN PRN Reason: Anixety/Agitation Stop: 11/14/16 20:56 Magnesium Hydroxide (Milk Of Magnesia) 30 ml PO HS PRN PRN Reason: Constipation Metformin HCl (Glucophage) 850 mg PO BID [facility] Last Admin: 11/01/16 09:35 Dose: 850 mg Metoprolol Tartrate (Lopressor) 50 mg PO DAILY [facility] Last Admin: 11/01/16 09:36 Dose: 50 mg Pantoprazole Sodium (Protonix Ec Tab) 20 mg PO DAILY [facility] Last Admin: 11/01/16 09:36 Dose: 20 mg Quetiapine Fumarate (Seroquel) 25 mg PO HS [facility] Last Admin: 10/31/16 22:36 Dose: 25 mg Sitagliptin Phosphate (Januvia) 100 mg PO DAILY [facility] Last Admin: 11/01/16 09:35 Dose: 100 mg Physical Exam - Head Exam Head Exam: NORMAL INSPECTION - Eye Exam Eye Exam: Normal appearance - ENT Exam ENT Exam: Mucous Membranes Moist - Respiratory Exam Respiratory Exam: Clear to Auscultation Bilateral - Cardiovascular Exam Cardiovascular Exam: Irregular Rhythm - GI/Abdominal Exam GI & Abdominal Exam: Normal Bowel Sounds - Back Exam Back exam: NORMAL INSPECTION - Neurological Exam Neurological exam: Altered, CN II-XII Intact - Psychiatric Exam Psychiatric exam: Anxious Results - Vital Signs Recent Vital Signs: Last Vital Signs Temp 97.3 F L 11/01/16 05:56 Pulse 72 11/01/16 09:36 Resp 20 11/01/16 05:56 BP 137/52 L 11/01/16 09:36 Pulse Ox - Labs Labs: Laboratory Results - last 24 hr 11/01/16 11/01/16 05:51 11:05 POC Glucose (mg/dL) 114 H 168 H Assessment & Plan (1) Chronic a-fib Status: Acute (2) Dementia Status: Acute (3) Diabetes mellitus type II, controlled, with no complications Status: Chronic (4) Hypertension Status: Chronic - Assessment and Plan (Free Text) Plan: Cont meds cont tx resume all meds low salt diet
[2016-11-02] MEDS: Albuterol 0.083% Inhal Sol (2.5 mg/3 mL) UD INH SCH ×3 (07:30→19:58)
[2016-11-02] MEDS: Pantoprazole 20 mg EC Tab PO SCH (09:08)
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
[2016-11-03] MEDS: Albuterol 0.083% Inhal Sol (2.5 mg/3 mL) UD INH SCH ×2 (07:00→20:03)
--- NOTE | 2016-11-03 09:11 | PCM.PYCHPN ---
Psychiatric Progress Note - Psychiatric Progress Note Patient seen today, length of contact: Chart reviewed, patient evaluated, case discussed with team, 35 min Patient Chief Complaint: "I don't know where I am, I need to call my shock absorption floor layer" Problems Identified/Issues Discussed: Patient is only oriented x 1, not place/location/situations. She was irritable towards grant writer for asking questions. She refused to take her medications this morning and also only ate very little of her breakfast, stating that she does not want to eat. She talks about leaving the hospital, calling the police and calling her shock absorption floor layer. She seems to have poor insight and judgment. Medication Change: Yes (Increase Seroquel to 50 mg PO Daily@1700) Medical Record Reviewed: Yes Mental Status Examination - Cognitive Function Orientation: Person Memory: Impaired Attention: Poor Concentration: Poor Association: Loose Fund of Knowledge: Poor Decription of patient's judgement and insights: Poor I/J - Mood Mood: Anxious - Affect Affect: Other (Irritable) - Speech Speech: Soft - Formal Thought Process Formal Thought Process: Paranoia, Loosening of associations Psychotic Thoughts and Behaviors: +Paranoia - Suicidal Ideation Suicidal Ideation: No - Homicidal Ideation Homicidal Ideation: No Goal/Treatment Plan - Goal/Treatment Plan Need for Continued Stay: Remain at risks for inpatient hospitalization, Failed transitioning, Severe functional impairment Progress Toward Problem(s) and Goals/Treatment Plan: 85 yo female w/ dementia w/ behavioral disturbances, continues to be irritable, labile, with poor insight. -Increase Seroquel to 50 mg PO Daily@1700 -Continue 1:1 for safety -PT evaluation for unsteady gait (pt uses walker at baseline) -Routine medicine consult re: chronic medical conditions -Collateral history Estimated Date of D/C: 11/07/16
[2016-11-04] MEDS: Pantoprazole 20 mg EC Tab PO SCH (09:08)
--- NOTE | 2016-11-04 09:48 | PCM.PYCHPN ---
Psychiatric Progress Note - Psychiatric Progress Note Patient seen today, length of contact: Chart reviewed, patient evaluated, case discussed with team, 35 min Patient Chief Complaint: "The medications is too bitter" Problems Identified/Issues Discussed: Patient is only oriented x 1, not place/location/situations. She is concerned about the medications she takes, stating that it is bitter and that she does not trust it because she does not think it is good for her. She took her medications this morning. She talks about wanting to leave the hospital. She denies feeling worried about her safety and denied any desire to call the police. She seems to have poor insight and judgment. Case was discussed yesterday with the patient's POA, daughter and son-in law, [place]. Medication Change: Yes (Increase Seroquel to 50 mg PO Daily@1700/ 25 mg PO HS) Medical Record Reviewed: Yes Mental Status Examination - Cognitive Function Orientation: Person Memory: Impaired Attention: Poor Concentration: Poor Association: Loose Fund of Knowledge: Poor Decription of patient's judgement and insights: Poor I/J - Mood Mood: Anxious - Affect Affect: Constricted - Speech Speech: Soft - Formal Thought Process Formal Thought Process: Paranoia, Loosening of associations Psychotic Thoughts and Behaviors: +mild Paranoia - Suicidal Ideation Suicidal Ideation: No - Homicidal Ideation Homicidal Ideation: No Goal/Treatment Plan - Goal/Treatment Plan Need for Continued Stay: Remain at risks for inpatient hospitalization, Failed transitioning, Severe functional impairment Progress Toward Problem(s) and Goals/Treatment Plan: 85 yo female w/ dementia w/ behavioral disturbances, continues to have some paranoia and is irritable at times. -Increase Seroquel to 50 mg PO Daily@1700/ 25 mg PO HS -Continue 1:1 for safety -PT eval/treat -Routine medicine consult re: chronic medical conditions -Case discussed with PODmitry, policy writer sales given permission to modify the medications as clinically appropriate. Estimated Date of D/C: 11/07/16
[2016-11-04] MEDS: Albuterol 0.083% Inhal Sol (2.5 mg/3 mL) UD INH SCH (18:51)
[2016-11-05] MEDS: Pantoprazole 20 mg EC Tab PO SCH (08:42)
--- NOTE | 2016-11-05 09:09 | CP.PCM.PN ---
Subjective - Date & Time of Evaluation Date of Evaluation: 11/04/16 Time of Evaluation: 10:00 - Subjective Subjective: Patient is fairly stable Has no chest pain or SOB Has good sleep and appetite Objective - Vital Signs/Intake and Output Vital Signs (last 24 hours): Temp Pulse Resp BP Pulse Ox 96.3 F L 65 20 144/61 11/05/16 06:00 11/05/16 08:41 11/05/16 06:00 11/05/16 08:41 - Medications Medications: Current Medications Acetaminophen (Tylenol 325mg Tab) 650 mg PO Q4 PRN PRN Reason: Pain, moderate (4-7) Last Admin: 11/01/16 16:01 Dose: 650 mg Al Hydrox/Mg Hydrox/Simethicone (Maalox Plus 30 Ml) 30 ml PO Q4 PRN PRN Reason: Dyspepsia Albuterol Sulfate (Albuterol 0.083% Inhal Magnolia (2.5 Mg/3 Ml) Ud) 2.5 mg INH RTID [facility] Last Admin: 11/04/16 18:51 Dose: Not Given Amlodipine Besylate (Norvasc) 5 mg PO DAILY [facility] Last Admin: 11/05/16 08:41 Dose: 5 mg Bismuth Subsalicylate (Pepto-Bismol) 524 mg PO Q4 PRN PRN Reason: Diarrhea Gabapentin (Neurontin) 400 mg PO HS [facility] Last Admin: 11/04/16 21:09 Dose: 400 mg Lorazepam (Ativan) 0.5 mg PO HS PRN PRN Reason: Insomnia Stop: 11/14/16 20:56 Last Admin: 11/03/16 22:02 Dose: 0.5 mg Lorazepam (Ativan) 0.5 mg PO Q6 PRN PRN Reason: Anixety/Agitation Stop: 11/14/16 20:56 Last Admin: 11/03/16 08:41 Dose: 0.5 mg Lorazepam (Ativan) 0.5 mg IM Q6 PRN PRN Reason: Agitation Magnesium Hydroxide (Milk Of Magnesia) 30 ml PO HS PRN PRN Reason: Constipation Metformin HCl (Glucophage) 850 mg PO BID [facility] Last Admin: 11/05/16 08:39 Dose: 850 mg Metoprolol Tartrate (Lopressor) 50 mg PO DAILY [facility] Last Admin: 11/05/16 08:40 Dose: 50 mg Pantoprazole Sodium (Protonix Ec Tab) 20 mg PO DAILY [facility] Last Admin: 11/05/16 08:42 Dose: 20 mg Quetiapine Fumarate (Seroquel) 50 mg PO DAILY@1700 [facility] Last Admin: 11/04/16 19:31 Dose: Not Given Quetiapine Fumarate (Seroquel) 25 mg PO HS [facility] Last Admin: 11/04/16 21:09 Dose: 25 mg Sitagliptin Phosphate (Januvia) 100 mg PO DAILY [facility] Last Admin: 11/05/16 08:39 Dose: 100 mg - Head Exam Head Exam: NORMAL INSPECTION - Eye Exam Eye Exam: Normal appearance - ENT Exam ENT Exam: Mucous Membranes Moist - Respiratory Exam Respiratory Exam: Clear to Ausculation Bilateral - Cardiovascular Exam Cardiovascular Exam: Irregular Rhythm - GI/Abdominal Exam GI & Abdominal Exam: Normal Bowel Sounds - Neurological Exam Neurological Exam: Altered - Psychiatric Exam Psychiatric exam: Anxious Assessment and Plan (1) Chronic a-fib Status: Acute (2) Dementia Status: Acute (3) Diabetes mellitus type II, controlled, with no complications Status: Chronic (4) Hypertension Status: Chronic - Assessment and Plan (Free Text) Plan: cont meds cont tx cont nursng care
--- NOTE | 2016-11-05 09:38 | PCM.PYCHPN ---
Psychiatric Progress Note - Psychiatric Progress Note Patient seen today, length of contact: Chart reviewed, patient evaluated, case discussed with team, 35 min Patient Chief Complaint: "I'm okay" Problems Identified/Issues Discussed: Patient is only oriented x 1, not place/location/situations. Patient is calm, cooperative, but seems irritable at times. No acute paranoia. We discussed the possibility of subacute rehab following discharge as recommended by PT and she is agreeable. Medication Change: No Medical Record Reviewed: Yes Mental Status Examination - Cognitive Function Orientation: Person Memory: Impaired Attention: Poor Concentration: Poor Association: Loose Fund of Knowledge: Poor Decription of patient's judgement and insights: Poor I/J - Mood Mood: Anxious - Affect Affect: Constricted - Speech Speech: Soft - Formal Thought Process Formal Thought Process: Loosening of associations Psychotic Thoughts and Behaviors: No acute paranoia/delusions - Suicidal Ideation Suicidal Ideation: No - Homicidal Ideation Homicidal Ideation: No Goal/Treatment Plan - Goal/Treatment Plan Progress Toward Problem(s) and Goals/Treatment Plan: 85 yo female w/ dementia w/ behavioral disturbances, now improving clinically. -Continue Seroquel 50 mg PO Daily@1700/ 25 mg PO HS -Discontinue 1:1 and monitor for safety -PT recommends [facility] following discharge -Routine medicine consult re: chronic medical conditions appreciated -Case discussed with STEFANIE, marketing copywriter given permission to modify the medications as clinically appropriate. Estimated Date of D/C: 11/07/16 - Smoking Cessation Smoking Cessation Initiated: No Reason for not providing: Not indicated
[2016-11-06] MEDS: Pantoprazole 20 mg EC Tab PO SCH (08:19)
--- NOTE | 2016-11-06 08:23 | PCM.PYCHPN ---
Psychiatric Progress Note - Psychiatric Progress Note Patient seen today, length of contact: Chart reviewed, patient evaluated, case discussed with team, 35 min Patient Chief Complaint: "I'm okay" Problems Identified/Issues Discussed: Patient is only oriented x 1, not place/location/situations. Patient is calm, cooperative. No periods of agitation or irritability. No acute paranoia. No complaints of depression or anxiety. Medication Change: No Medical Record Reviewed: Yes Mental Status Examination - Cognitive Function Orientation: Person Memory: Impaired Attention: Poor Concentration: Poor Association: Loose Fund of Knowledge: Poor Decription of patient's judgement and insights: Poor I/J - Mood Mood: Anxious - Affect Affect: Constricted - Speech Speech: Soft - Formal Thought Process Formal Thought Process: Loosening of associations Psychotic Thoughts and Behaviors: No acute paranoia/delusions - Suicidal Ideation Suicidal Ideation: No - Homicidal Ideation Homicidal Ideation: No Goal/Treatment Plan - Goal/Treatment Plan Progress Toward Problem(s) and Goals/Treatment Plan: 85 yo female w/ dementia w/ behavioral disturbances, now clinically improved. -Continue Seroquel 50 mg PO Daily@1700/ 25 mg PO HS -Start referral to [facility], if STEFANIE in agreement, otherwise patient will likely be discharged to home tomorrow under the care of her family -Routine medicine consult re: chronic medical conditions appreciated -Case discussed with STEFANIE, sports writer given permission to modify the medications as clinically appropriate. Estimated Date of D/C: 11/07/16 - Smoking Cessation Smoking Cessation Initiated: No Reason for not providing: Not indicated
[2016-11-06] MEDS: Albuterol 0.083% Inhal Sol (2.5 mg/3 mL) UD INH SCH ×3 (08:31→20:05)
[2016-11-07 05:50] VITALS: BP 125/79; RESP 18; TEMP 97.2
[2016-11-07] MEDS: Pantoprazole 20 mg EC Tab PO SCH (08:33)
[2016-11-07] MEDS: Albuterol 0.083% Inhal Sol (2.5 mg/3 mL) UD INH SCH (08:34)
[2016-11-07 08:36] VITALS: PULSE 61
--- NOTE | 2016-11-07 09:20 | PCM.PYCHDC ---
Mental Status Examination - Mental Status Examination Orientation: Person Memory: Impaired Mood: Neutral Affect: Broad Speech: Appropriate Attention: Poor Concentration: Poor Association: Loose Fund of Knowledge: Poor Formal Thought Process: Loosening of associations Description of patient's judgement and insight: Poor I/J Psychotic Thoughts and Behaviors: No acute paranoia/delusions Suicidal Ideation: No Current Homicidal Ideation?: No Discharge Summary - Discharge Note Reason for Hospitalization: 85 y/o female w/ h/o dementia admitted for increasing change in behavior, agitation and paranoia. Laboratory Data: Abnormal Lab Results 11/06/16 11/07/16 11/07/16 15:43 02:07 05:52 POC Glucose (mg/dL) 97 92 94 Consultations:: List each consultation separately and include: 1. Reason for request. 2. Findings. 3. Follow-up Consultations: Medicine consult Summary of Hospital Course include:: 1. Description of specific treatment plan utilized for patients during their course of treatmen. 2. Summarize the time- course for resolution of acute symptoms and/or regressed behaviors. 3. Describe issues identified and worked on during hospitalization. 4. Describe medication utilized. 5. Describe medical problems identified and treated. 6. Reassessment of suicide risk Summary of Hospital Course: Patient admitted to geriatric psychiatry unit. She participated in individual and group therapy. She was stabilized on Seroquel 25 mg PO Daily@1700/50 mg PO HS. She is calm and no longer has behavior disturbances or paranoia. - Final Diagnosis (DSM 5) Condition upon Discharge: STABLE DSM 5: Dementia with behavioral disturbances Disposition: HOME/ ROUTINE Follow-up Treatment Plan: 85 yo female w/ dementia w/ behavioral disturbances, now clinically improved. -Seroquel 25 mg PO Daily@1700/ 50 mg PO HS -Discharge to home under the care of her family Discharge >35 min Prescriptions/Medication Reconciliation: QUEtiapine [SEROquel] 25 mg PO ASDIR #90 tab - Smoking Cessation Smoking Cessation Medication prescribed: No Reason for not providing: Not indicated - Antipsychotic Medications Pt discharged on 2 or more routine antipsychotic medications: No
== END 2016-11-07 10:45 | disposition home or self-care (01) | DRG 884 ==
LOC: H.STEP 18:43
PROVIDERS: ADMIT Family Medicine; ATTEND Family Medicine
PROC: GZHZZZZ Group Psychotherapy (ICD-10-PCS; principal; 2016-10-31)
DX: F03.91 Unspecified dementia, unspecified severity, with behavioral disturbance (principal); I48.2 Chronic atrial fibrillation; E11.9 Type 2 diabetes mellitus without complications; I10 Essential (primary) hypertension

== ENCOUNTER 2017-02-16 10:40 | Emergency (ER) | payer MEDICARE, MEDICAID ==
[2017-02-16 10:57] VITALS: BP 144/94; PULSE 58; RESP 20; TEMP 98.2; O2SAT 100
[2017-02-16 10:59] VITALS: BMI 30.1
[2017-02-16] MEDS ORDERED: Acetaminophen-Codeine 300/30 mg Tab PO STA (11:46)
[2017-02-16] MEDS ORDERED: Acetaminophen-Codeine 300/30 mg Tab ONE (11:53)
--- NOTE | 2017-02-16 12:26 | ED PDOC ---
Lower Extremity Pain/Injury Time Seen by Provider: 02/16/17 11:15 Chief Complaint (Nursing): Lower Extremity Problem/Injury Chief Complaint (Provider): Bilateral leg pain History Per: Patient, Other (plant control aide) History/Exam Limitations: no limitations Onset/Duration Of Symptoms: Other (1 month) Additional Complaint(s): Patient is an 86 y/o female with a past medical history of hypertension, diabetes, and gastritis presenting to the emergency department for bilateral leg pain located behind the knees, ongoing for one month and worse this week. Reports taking Tramadol without significant relief of symptoms. Denies fever, calf pain, fall, or other complaints. PCP: Dr. Jonathan Calderon Past Medical History Reviewed: Historical Data, Nursing Documentation, Vital Signs Vital Signs: Last Vital Signs Temp 98.2 F 02/16/17 10:54 Pulse 58 L 02/16/17 10:54 Resp 20 02/16/17 10:54 BP 144/94 H 02/16/17 10:54 Pulse Ox 100 02/16/17 10:54 - Medical History PMH: Anxiety, Arthritis, Asthma, Atrial Fibrillation, Bronchitis, Dementia, Depression, Diabetes (type II), Diverticulitis, Gastritis, HTN, Hypercholesterolemia Denies: Anemia, Hepatitis, HIV, Chronic Kidney Disease, Seizures, Sexually Transmitted Disease - Surgical History Surgical History: Appendectomy (from previous chart, patient is unsure of what surguries she has had), Cholecystectomy (from previous chart, patient is unsure of what surguries she has had), Hernia Repair - Family History Family History: States: Unknown Family Hx - Social History Current smoker - smoking cessation education provided: No Ex-Smoker (has not smoked in the last 12 months): No Alcohol: None Drugs: Denies - Home Medications Home Medications: Ambulatory Orders Medication Instructions Recorded Metoprolol Tartrate [Lopressor] 50 mg PO DAILY 03/20/14 Sitagliptin Phosphate [Januvia] 100 mg PO DAILY 03/20/14 Metformin HCl 850 mg PO BID 05/11/15 Omeprazole 20 mg PO DAILY 07/23/15 amLODIPine [Norvasc] 5 mg PO DAILY #0 tab 10/23/15 Gabapentin [Neurontin] 400 mg PO HS cap 10/31/16 QUEtiapine [SEROquel] 25 mg PO ASDIR #90 tab 11/07/16 - Allergies Allergies/Adverse Reactions: Allergies Allergy/AdvReac Type Severity Reaction Status Date / Time No Known Allergies Allergy Verified 09/24/16 10:22 Review of Systems ROS Statement: Except As Marked, All Systems Reviewed And Found Negative Constitutional: Negative for: Fever Musculoskeletal: Positive for: Leg Pain (bilateral, area behind the knees). Negative for: Other (calf pain) Physical Exam - Reviewed Nursing Documentation Reviewed: Yes Vital Signs Reviewed: Yes - Physical Exam Head Exam: Positive for: ATRAUMATIC, NORMAL INSPECTION, NORMOCEPHALIC Skin: Positive for: Normal Color, Warm, Dry Eye Exam: Positive for: Normal appearance Neck: Positive for: Normal, Painless ROM, Supple Cardiovascular/Chest: Positive for: Regular Rate, Rhythm. Negative for: Murmur Respiratory: Positive for: Normal Breath Sounds. Negative for: Accessory Muscle Use, Respiratory Distress Extremity: Positive for: Normal ROM, Tenderness (bilateral, area behind the knees). Negative for: Calf Tenderness (bilateral ) - ECG O2 Sat by Pulse Oximetry: 100 (RA) Pulse Ox Interpretation: Normal Medical Decision Making Medical Decision Making: Time: 11:44 Initial impression: Bilateral knee pain with left calf pain acte on chronic Initial plan: Knee X-Ray Tylenol/Codeine 1 tab PO Duplex extremity ultrasound Reevaluation Time: 14:01 Duplex extremity US: FINDINGS: COMMON FEMORAL VEIN: Right CFV: Unremarkable. Left CFV: Unremarkable. SUPERFICIAL FEMORAL VEIN: Right SFV: Unremarkable. Left SFV: Unremarkable. POPLITEAL VEIN: Right Popliteal: Unremarkable. Left Popliteal: Unremarkable. POSTERIOR TIBIAL VEIN: Right PTV: Unremarkable. Left PTV: Unremarkable. OTHER FINDINGS: None. IMPRESSION: No evidence of deep venous thrombosis. Time: 14:50 Clinical Impression: Chronic knee pain * Patient informed of imaging results and the need to follow up with Orthopedist for further work up Time: 14:56 pt resting in bed in NAD. appears to be comfortable. * Daughter wants crisis evaluation * States that patient has been depressed, not SI * Ordered crisis evaluation and informed casting house worker 352 pm pt waiting for crisis evaluation. But left prior to crisis evaluation. pt and family just walked out of the ER. Scribe Attestation: Documented by Annika York & Kirsten Melo, acting as a scribe for Regina Ayoub MD. Provider Scribe Attestation: All medical record entries made by the Scribe were at my direction and personally dictated by me. I have reviewed the chart and agree that the record accurately reflects my personal performance of the history, physical exam, medical decision making, and the department course for this patient. I have also personally directed, reviewed, and agree with the discharge instructions and disposition. Disposition - Clinical Impression Clinical Impression: Chronic knee pain - Patient ED Disposition Is Patient to be Admitted: No Counseled Patient/Family Regarding: Studies Performed, Diagnosis, Need For Followup, Rx Given - Disposition Referrals: [facility] [Outside] [facility] [Outside] Esa Vinson MD [Staff Provider] - Disposition: Routine/Home Disposition Time: 13:30 Condition: IMPROVED Additional Instructions: follow up with your primary doctor as well as orthopedist for further treatment return to the ED with any worsening or concerning symptoms. Instructions: Knee Pain (ED) Forms: [facility] (Bel[place]ian)
--- NOTE | 2017-02-16 14:03 | US ---
PROCEDURE: Bilateral lower extremity venous duplex Doppler. HISTORY: leg pain COMPARISON: None available. TECHNIQUE: Bilateral common femoral, superficial femoral, popliteal and posterior tibial veins were evaluated. Flow was assessed with color Doppler, compressibility, assessment of phasic flow and augmentation response. FINDINGS: COMMON FEMORAL VEIN: Right CFV: Unremarkable. Left CFV: Unremarkable. SUPERFICIAL FEMORAL VEIN: Right SFV: Unremarkable. Left SFV: Unremarkable. POPLITEAL VEIN: Right Popliteal: Unremarkable. Left Popliteal: Unremarkable. POSTERIOR TIBIAL VEIN: Right PTV: Unremarkable. Left PTV: Unremarkable. OTHER FINDINGS: None. IMPRESSION: No evidence of deep venous thrombosis.
--- NOTE | 2017-02-16 16:48 | RAD ---
PROCEDURE: Bilateral Knee Radiographs. HISTORY: chronic bilateral knee pain COMPARISON: None. FINDINGS: BONES: Right Knee: Proliferative hypertrophic changes emanating from the femoral condyle and tibial plateau Left Knee: Proliferative hypertrophic changes emanating from the femoral condyle and tibial plateau JOINTS: Right Knee: Lateral compartment narrowing and mild patellofemoral degenerative change. Left knee: Medial, lateral compartment narrowing with relative sparing of patellofemoral joint. SOFT TISSUES: Right Knee: Normal. Left Knee: Normal. JOINT EFFUSION: Right Knee: None. Left Knee: None. OTHER FINDINGS: None. IMPRESSION: No acute findings related to/accounting for the clinical presentation. Bilateral degenerative changes left greater than right.
== END 2017-02-16 15:53 | disposition left against medical advice (07) ==
LOC: H.ER 10:40
DX: M25.562 Pain in left knee (principal); E11.9 Type 2 diabetes mellitus without complications; F03.90 Unspecified dementia, unspecified severity, without behavioral disturbance, psychotic disturbance, mood disturbance, and anxiety; F32.9 Major depressive disorder, single episode, unspecified; F41.9 Anxiety disorder, unspecified; G89.29 Other chronic pain; I10 Essential (primary) hypertension; I48.91 Unspecified atrial fibrillation

== ENCOUNTER 2017-05-22 17:42 | Inpatient (IN) | payer OTHER ==
[2017-05-22 17:44] VITALS: BMI 30.1
--- NOTE | 2017-05-22 18:06 | ED PDOC ---
HPI: General Adult Time Seen by Provider: 05/22/17 17:53 Chief Complaint (Nursing): Psychiatric Evaluation Chief Complaint (Provider): Psychiatric Evaluation History Per: Family (Daughter) History/Exam Limitations: no limitations Current Symptoms Are (Timing): Still Present Additional Complaint(s): 86 y/o female with a past medical history of dementia, Alzheimer's, diabetes, hypertension, and A-fibrillation who presents to the emergency department accompanied by daughter due to increasingly aggressive behavior. Reports patient has tried to run out of the house. Denies any further medical complaints. PMD: Dr. Jonathan Calderon MD Past Medical History Reviewed: Historical Data, Nursing Documentation, Vital Signs Vital Signs: Last Vital Signs Temp 98.5 F 05/22/17 17:50 Pulse 68 05/22/17 17:50 Resp 16 05/22/17 17:50 BP 114/78 05/22/17 17:50 Pulse Ox 98 05/22/17 17:50 - Medical History PMH: Anxiety, Arthritis, Asthma, Atrial Fibrillation, Bronchitis, Dementia, Depression, Diabetes (type II), Diverticulitis, Gastritis, HTN, Hypercholesterolemia Denies: Anemia, Hepatitis, HIV, Chronic Kidney Disease, Seizures, Sexually Transmitted Disease - Surgical History Surgical History: Appendectomy (from previous chart, patient is unsure of what surguries she has had), Cholecystectomy (from previous chart, patient is unsure of what surguries she has had), Hernia Repair - Family History Family History: States: Unknown Family Hx - Home Medications Home Medications: Ambulatory Orders Medication Instructions Recorded Metoprolol Tartrate [Lopressor] 50 mg PO DAILY 03/20/14 Sitagliptin Phosphate [Januvia] 100 mg PO DAILY 03/20/14 Metformin HCl 850 mg PO BID 05/11/15 Omeprazole 20 mg PO DAILY 07/23/15 amLODIPine [Norvasc] 5 mg PO DAILY #0 tab 10/23/15 Gabapentin [Neurontin] 400 mg PO HS cap 10/31/16 QUEtiapine [SEROquel] 25 mg PO ASDIR #90 tab 11/07/16 - Allergies Allergies/Adverse Reactions: Allergies Allergy/AdvReac Type Severity Reaction Status Date / Time No Known Allergies Allergy Verified 09/24/16 10:22 Review of Systems ROS Statement: Except As Marked, All Systems Reviewed And Found Negative (As per HPI, otherwise negative) Psych: Positive for: Other (Increasingly aggressive behavior ) Physical Exam - Reviewed Nursing Documentation Reviewed: Yes Vital Signs Reviewed: Yes - Physical Exam Appears: Positive for: Non-toxic, No Acute Distress Head Exam: Positive for: ATRAUMATIC, NORMAL INSPECTION, NORMOCEPHALIC Skin: Positive for: Normal Color, Warm, Dry Cardiovascular/Chest: Positive for: Irregularly Irregular. Negative for: Regular Rate, Rhythm, Murmur Respiratory: Positive for: Normal Breath Sounds. Negative for: Accessory Muscle Use, Respiratory Distress Gastrointestinal/Abdominal: Positive for: Normal Exam, Soft. Negative for: Tenderness Extremity: Positive for: Normal ROM. Negative for: Tenderness, Swelling Neurologic/Psych: Positive for: Alert, Oriented (x1). Negative for: Motor/ Sensory Deficits - Laboratory Results Result Diagrams: 05/22/17 18:40 Medical Decision Making Medical Decision Making: Time: 1757 Initial Impression: Initial Plan: --EKG --Alcohol Serum --CMP --Drug Screen, Urine --Urine DIP --CBC w. diff --Chest x-ray --Reevaluation Medically stable for psychiatric admission Scribe~Attestation: Documented by Corinna Tracy, acting as a scribe for Jamaal Patel MD. Provider Scribe~Attestation: All medical record entries made by the Scribe were at my direction and personally dictated by me. I have reviewed the chart and agree that the record accurately reflects my personal performance of the history, physical exam, medical decision making, and the department course for this patient. I have also personally directed, reviewed, and agree with the discharge instructions and disposition. Disposition - Clinical Impression Clinical Impression: Dementia - Patient ED Disposition Is Patient to be Admitted: Yes - Disposition Disposition Time: 19:02 Condition: FAIR Forms: [employer] ([place]) - Pt Status Changed To: Hospital Disposition Of: Inpatient - Admit Certification Admit to Inpatient:: After my assessment, the patient will require hospitalization for at least two midnights. This is because of the severity of symptoms shown, intensity of services needed, and/or the medical risk in this patient being treated as an outpatient. - POA Present On Arrival: None
[2017-05-22 18:47] LABS: BASO % 0.6 % (0.0-2.0); EOS # 0.1 K/uL (0.0-0.7); EOS % 0.8 % (0.0-4.0); HEMOGLOBIN 12.9 g/dL (12.0-16.0); LYMPH # 2.2 K/uL (1.0-4.3); LYMPH % 27.2 % (20.0-40.0); MEAN CELL VOLUME 91.4 fl (81.0-99.0); MEAN CORPUSCULAR HEMOGLOBIN 30.3 pg (27.0-31.0); MEAN CORPUSCULAR HGB CONC 33.2 g/dL (33.0-37.0); MEAN PLATELET VOLUME 8.6 fl (7.2-11.7); MONO # 0.7 K/uL (0.0-0.8); MONO % 9.1 % (0.0-10.0); NEUT # 5.1 K/uL (1.8-7.0); NEUT % 62.3 % (50.0-75.0); NRBC % 0.1 % (0.0-0.0); RBC 4.24 Mil/uL (3.80-5.20); RED CELL DISTRIBUTION WIDTH 14.3 % (11.5-14.5); WHITE BLOOD COUNT 8.1 K/uL (4.8-10.8)
[2017-05-22 18:56] LABS: ALB/GLOB RATIO 1.1 (1.0-2.1); ALBUMIN 4.3 g/dL (3.5-5.0); ALT/SGPT 27 U/L (9-52); AST/SGOT 18 U/L (14-36); BLOOD UREA NITROGEN 19 mg/dl (7-17); CALCIUM 9.2 mg/dL (8.4-10.2); GFR AFRICAN-AMERICAN > 60; GFR NON-AFRICAN AMERICAN > 60
--- NOTE | 2017-05-22 19:04 | RAD ---
HISTORY: Cough portable study 18:21 COMPARISON: 10/30/2016 FINDINGS: LUNGS: No active pulmonary disease. PLEURA: No significant pleural effusion identified, no pneumothorax apparent. CARDIOVASCULAR: C No radiographic findings to suggest acute or significant cardiovascular disease. OSSEOUS STRUCTURES: No significant abnormalities. VISUALIZED UPPER ABDOMEN: Normal. OTHER FINDINGS: None. IMPRESSION: No active disease. No significant interval change compared to the prior examination(s).
[2017-05-22 19:41] VITALS: O2SAT 95
[2017-05-22 19:57] LABS: BARBITURATES, UR NEGATIVE (NEGATIVE); BENZODIAZEPINES, UR NEGATIVE (NEGATIVE); OPIATES, UR NEGATIVE (NEGATIVE); PHENCYCLIDINE, UR NEGATIVE (NEGATIVE)
[2017-05-22] MEDS ORDERED: Bismuth Subsalicylate 262 mg/15 ml Sus (240 ml) PO PRN (21:36)
[2017-05-22] MEDS ORDERED: Magnesium Hydroxide Susp 30 ml UD PO PRN (21:36)
[2017-05-22] MEDS ORDERED: Alum-Mag Hydrox-Simethicone Susp (30 mL) PO PRN (21:36)
--- NOTE | 2017-05-22 21:55 | PCM.BM ---
<Belinda Soto - Last Filed: 05/22/17 21:53> Treatment Plan Problems - Problems identified on initial assessmt Agitated/aggressive behavior Date Initiated: 05/22/17 Time Initiated: 21:54 Assessment reference: NA Status: Active Treatment assets and liabiliti Patient Assests: cooperative, good support system, negotiates basic needs Patient Liabilities: imparied memory - Milieu Protocol Maintain good personal hygiene: daily Encourage regular showers, daily Remind patient to perform daily oral care, every shift Assist patient to perform ADL's Conduct patient checks and document Observation sheet: Q15 minutes Maintain personal safety: every shift Educate patient to report safety concerns to staff, every shift Monitor environment for contraband/sharps Medication safety: Monitor for expected outcome, potential side effects: every shift, Assess barriers to learning: every shift, Assess readiness for medication education: every shift <Reyna Gibson - Last Filed: 05/26/17 08:18> - Diagnosis (1) Dementia with behavioral disturbance Status: Acute Interventions: Medication management, Psychoeducation, Individual and group therapy 05/26/17 08:18 <Carmella Chaudhry M - Last Filed: 05/26/17 08:22> Family Contact Family contact: Patient agrees to contact Family contact name: Candice Crystal - daughter and STEFANIE Family contacted how many times per week?: 2 Family contact comment: [phone] - Outside Agency Dr. Jian Stone MD Care involvment: Information-sharing Agency contact number: [phone] [facility], [facility] Care involvment: Information-sharing Agency contact name: CoordinatorStephanie Agency contact number: [phone] - Goals for Treatment Patient goals for treatment: Pt to be encouraged to attend activity and clinical groups 3-5x per week to identify at least 2 contributing factors to increased agitation, irritability, and aggression. Psycho-education to be provided to patient/family regarding benefits of medications and treatment adherence. Pt to be encouraged to participate in group milieu to develop effective coping skills to reduce aggression and reduce psychiatric hospitalizations. Coordinate discharge resource needs by providing referral for psychiatric treatment follow up in the community Discharge/Continuing Care - Education Needs Education Needs: Family Medication, Family Diagnosis/Disease Process, Family Coping Skills, Family Anger Management skills, Family Placement options, Family Community resources, Family Activities of Daily Living, Family Nutrition, Family Uses of Medical Equipment, Family Health Practices/Safety, Family Personal Hygiene/Grooming, Family Aftercare Safety Plan, Patient Medication, Patient Diagnosis/Disease Process, Patient Coping Skills, Patient Anger Management skills, Patient Placement options, Patient Community resources, Patient Activities of Daily Living, Patient Nutrition, Patient Uses of Medical Equipment, Patient Health Practices/Safety, Patient Personal Hygiene/Grooming, Patient Aftercare Safety Plan - Discharge Discharge Criteria: Tolerates medication w/o severe side effects, Free of agitation, Normal sleep pattern, Ability to care for self, Reduction of target symptoms Discharge to:: Home, With Family, Other (Home with [facility]AL DRI[employer] OPERATOR services vs. LTC placement) - Additional Comments 05/26/17 08:01 Pt discussed in team meeting. Reason for admission reviewed and discussed. Pt's social and medical issues reviewed and discussed. Pt's medications reviewed and discussed. Reportedly, pt was non-compliant with medications at home. Tx plan reviewed and discussed. Daycare Manager will continue to follow case. - Treatment Team Participation Discussed with Family/SO: No (Will be informed via telephone) Was Patient/Family/SO present at Treatment Team Meeting: No
[2017-05-23 06:11] LABS: SQUAMOUS EPITHIAL 2 /hpf (0-5); URINE BILIRUBIN NEGATIVE (NEGATIVE); URINE BLOOD NEGATIVE (NEGATIVE); URINE CLARITY SLIGHTY-CLOUDY (Clear); URINE COLOR YELLOW (YELLOW); URINE GLUCOSE (UA) NEG (Normal); URINE LEUKOCYTE ESTERASE MOD Leu/uL (Negative); URINE NITRATE NEGATIVE (NEGATIVE); URINE PROTEIN NEGATIVE (NEGATIVE); URINE UROBILINOGEN 0.2-1.0 mg/dL (0.2-1.0)
[2017-05-23 07:25] LABS: T4 6.72 ug/dl (5.5-11.0)
[2017-05-23 07:38] LABS: HDL CHOLESTEROL 46 MG/DL (30-70)
[2017-05-23 07:43] LABS: FERRITIN 16.6 ng/Ml (11.1-264.0)
[2017-05-23 07:50] LABS: LDL CHOLESTEROL 122 mg/dL (0-129)
[2017-05-23 07:54] LABS: IRON 80 ug/dL (37-170)
[2017-05-23 08:04] LABS: % IRON SATURATION 25 % (20-55); TOTAL IRON BINDING CAPACITY 317 ug/dL (250-450)
[2017-05-23] MEDS: Pantoprazole 40 mg EC Tab PO SCH (09:06)
[2017-05-23] MEDS: Insulin Regular 100 units/ml SC SCH ×4 (09:37→22:00)
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
--- NOTE | 2017-05-23 15:20 | CARD ---
APPROVED REPORT EKG Measurement Heart [id number] <Conclusion> Normal sinus rhythm Left axis deviation Minimal voltage criteria for LVH, may be normal variant Cannot rule out Anterior infarct, age undetermined Abnormal ECG
[2017-05-23 17:10] LABS: FOLATE > 20.0 ng/mL
--- NOTE | 2017-05-24 08:38 | PN ---
DATE: 05/24/2017 MEDICAL FOLLOWUP PROGRESS NOTE SUBJECTIVE: The patient is seen and examined. Interim events noted. The patient remains in Geropsych Unit. The patient is sleepy, arousable. Feels okay. Denies any specific medical complaint other than arthritis-related joint pain. PHYSICAL EXAMINATION: GENERAL: The patient is in no acute distress. VITAL SIGNS: Stable. HEART: S1 and S2, normal and regular. LUNGS: Good bilateral air exchange. ABDOMEN: Soft, nontender. EXTREMITIES: No edema. No calf swelling. No tenderness. No acute ischemia. The patient has chronic arthritis and related changes. CENTRAL NERVOUS SYSTEM: Essentially unchanged. DIAGNOSTIC DATA: Available diagnostic data reviewed. ASSESSMENT AND PLAN: Overall, the patient is medically stable. Plan as ordered. Ant Villalba MD
[2017-05-24] MEDS: Insulin Regular 100 units/ml SC SCH ×4 (09:10→21:13)
[2017-05-24] MEDS: Pantoprazole 40 mg EC Tab PO SCH (09:12)
--- NOTE | 2017-05-24 22:11 | PCM.PYCHPN ---
Psychiatric Progress Note - Psychiatric Progress Note Patient seen today, length of contact: chart reviewed case discussed with team Patient Chief Complaint: pt is reported to be calm adherent with treatment-continues to have impaired insight as to current lof and required total care "came into hospital for leg pain" denies having any changes in memory or behavior Problems Identified/Issues Discussed: alteration in cognition alteration in self care primary language other than Persian: English Medical Problems: per chart Diagnostic Results: per psychiatry per medicine per nursing per social work DSM 5 Symptoms Update: alteration in cognition/thought process Medication Change: No Medical Record Reviewed: Yes Consults ordered or reviewed: pt being followed by dr. campbell Mental Status Examination - Cognitive Function Orientation: Person Attention: Poor Concentration: Poor Association: Loose Fund of Knowledge: Poor Decription of patient's judgement and insights: impaired - Mood Mood: Euphoric - Affect Affect: Constricted - Speech Speech: Soft - Formal Thought Process Formal Thought Process: No Impairment - Homicidal Ideation Homicidal Ideation: No Goal/Treatment Plan - Goal/Treatment Plan Progress Toward Problem(s) and Goals/Treatment Plan: inpt milieu vital signs and clinical assessment per protocol and per clinical assessment. adjust meds per status pt being followed by dr campbell [facility] physical therapy consult for ambulation transfer ability discharge planning in progress Estimated Date of D/C: 05/28/17 - Smoking Cessation Smoking Cessation Initiated: No Reason for not providing: deferred
[2017-05-25] MEDS: Pantoprazole 40 mg EC Tab PO SCH (08:40)
[2017-05-25] MEDS: Insulin Regular 100 units/ml SC SCH ×4 (08:41→21:02)
--- NOTE | 2017-05-25 09:19 | PN ---
DATE: 05/25/2017 SUBJECTIVE: The patient is seen and examined. Interim events noted. The patient remains in Geropsych Unit. The patient feels okay. Denies any specific complaint of chest pain or shortness of breath. PHYSICAL EXAMINATION: GENERAL: The patient is in no acute distress. VITAL SIGNS: Stable. HEART: S1 and S2, normal and regular. LUNGS: Good bilateral air exchange. ABDOMEN: Soft, nontender. EXTREMITIES: No edema. No calf swelling. No tenderness. No acute ischemia. CENTRAL NERVOUS SYSTEM: Essentially unchanged. DIAGNOSTIC DATA: Available diagnostic data reviewed. Urine culture showed more than 100,000 colony count, although identification and sensitivity of the organism is still pending. ASSESSMENT AND PLAN: The patient clinically has no symptoms of urinary tract infection. We will observe and follow up identification and sensitivity at this time rather than starting antibiotic at this time. Plan as ordered. Case and plan discussed with the patient. Ant Villalba MD
--- NOTE | 2017-05-25 09:24 | CON ---
MEDICAL CONSULTATION REQUESTING PHYSICIAN: Psychiatrist, Dr. Huang. The patient is in Geropsych Unit, admitted for increasing dementia and aggressive behavior. Medical consult was called for management of medical problem. The patient has a history of diabetes and blood pressure. CHIEF COMPLAINT: The patient complains of generalized body ache and arthritis pain. REVIEW OF SYSTEMS: Positive for joint pain and body aches. Review of systems is negative for headache, dizziness, syncope, loss of consciousness, chest pain, shortness of breath, nausea, vomiting, diarrhea, constipation. Review of systems of all other organ system is unremarkable. PAST MEDICAL HISTORY: Significant for diabetes, hypertension, obesity, arthritis, asthma, atrial fibrillation, bronchitis, dementia, depression, elevated cholesterol, gastritis, diverticulosis. PAST SURGICAL HISTORY: Remarkable for hernia repair and appendectomy, cholecystectomy. PERSONAL HISTORY: The patient is currently nonsmoker, nondrinker. No substance abuse. MEDICATIONS: The patient is on Lopressor, Januvia, metformin, omeprazole, amlodipine, Neurontin and Seroquel. The patient is not allergic to any medication. FAMILY HISTORY: Noncontributory. PHYSICAL EXAMINATION: GENERAL: A well-built, well-nourished, overweight female, in no acute distress. VITAL SIGNS: Temperature 98.1, pulse 68, respirations 19, blood pressure 120/73. HEENT: Pupils reacting to light. No JVD. No thyromegaly. No lymphadenopathy. No nystagmus. Normocephalic, atraumatic skull. HEART: S1 and S2. Normal and regular. No significant murmur, gallop or rub is heard. LUNGS: Shows good bilateral air exchange. No rales or rhonchi. ABDOMEN: Soft, nontender. No organomegaly. No fluid. Bowel sounds are plus. EXTREMITIES: No edema. No calf swelling. No tenderness. No acute ischemia. The patient has chronic arthritis. No sign of any fracture or dislocation. No sign of acute neurological decompensation. CENTRAL NERVOUS SYSTEM: The patient is alert, awake, oriented. No sign of any acute gross focal motor or sensory neurological deficits. The patient has advanced dementia. DIAGNOSTIC DATA: Available diagnostic data reviewed. WBC 8.1, hemoglobin 12.9, hematocrit 38.3, platelet 272. Sodium 142, potassium 4.0, chloride 105, bicarb 28, BUN 19, creatinine 0.8. SMA-12 is unremarkable. Urinalysis is negative. Toxicology is negative. Alcohol level is less than 10. Chest x-ray is clear. EKG does not reveal any acute ST-T changes. ADMITTING IMPRESSION: The patient with diabetes, hypertension, elevated cholesterol, arthritis, obesity, anxiety, depression, dementia, gastritis, diverticulosis, admitted for worsening dementia and aggressive behavior. The patient's medical issues are stable. PLAN: As ordered. Case and plan discussed with the patient. Thanks for this consult. We will follow the patient with you. Ant Villalba MD
--- NOTE | 2017-05-25 11:15 | PCM.PYCHPN ---
Psychiatric Progress Note - Psychiatric Progress Note Patient seen today, length of contact: Patient evaluated, case discussed w/ team , chart reviewed Patient Chief Complaint: "I'm okay." Problems Identified/Issues Discussed: Patient A + O x 1. She does not know where she is or why she is in the hospital. She is currently calm and cooperative. Special Collections Librarian spoke with patient's daughter, Candice [phone], who stated that the patient has been increasingly agitated at home. She believes the patient may have been non- compliant with her medication including the Seroquel, but sometimes the patient' s may forget to give her medications or won't give her the medications if she is irritable. POA gave speech writer to modify the medications as medically and psychiatrically indicated. Medication Change: No Medical Record Reviewed: Yes Mental Status Examination - Cognitive Function Orientation: Person Memory: Impaired Attention: Poor Concentration: Poor Association: Loose Fund of Knowledge: Poor Decription of patient's judgement and insights: Chronic poor I/J due to dementia - Mood Mood: Neutral - Affect Affect: Constricted - Speech Speech: Soft - Formal Thought Process Formal Thought Process: No Impairment Psychotic Thoughts and Behaviors: Denies AH/VH, but is observed talking to herself at times, unclear if she is responding to internal stimuli - Suicidal Ideation Suicidal Ideation: No - Homicidal Ideation Homicidal Ideation: No Goal/Treatment Plan - Goal/Treatment Plan Need for Continued Stay: Remain at risks for inpatient hospitalization, Severe functional impairment Progress Toward Problem(s) and Goals/Treatment Plan: Dementia w/ behavioral disturbances -Continue Seroquel; patient was likely non-compliant, will titrate if clinically indicated -Individual and group therapy -Psychoeducation -Medicine consult -Disposition planning Estimated Date of D/C: 05/28/17 - Smoking Cessation Smoking Cessation Initiated: No Reason for not providing: Not indicated
--- NOTE | 2017-05-26 08:27 | PN ---
DATE: 05/26/2017 SUBJECTIVE: The patient is seen and examined. Interim events noted and written orders were given. Urine culture showed Enterococcus sensitive to ampicillin, hence the patient was started on ampicillin. No specific medical complaint. No urinary symptom. No chest pain or shortness of breath. No sign of side effect. PHYSICAL EXAMINATION: GENERAL: The patient is in no acute distress. VITAL SIGNS: Stable. HEART: S1 and S2, normal and regular. LUNGS: Good bilateral air exchange. ABDOMEN: Soft, nontender. EXTREMITIES: No edema. No calf swelling. No tenderness. No acute ischemia. CENTRAL NERVOUS SYSTEM: Essentially unchanged. DIAGNOSTIC DATA: Urine culture as mentioned shows organism sensitive to ampicillin. ASSESSMENT AND PLAN: Plan as ordered. Case and plan was discussed with psychiatrist. Ant Villalba MD
--- NOTE | 2017-05-26 09:53 | PCM.PYCHPN ---
Psychiatric Progress Note - Psychiatric Progress Note Patient seen today, length of contact: Patient evaluated, case discussed w/ team , chart reviewed Patient Chief Complaint: "I'm okay." Problems Identified/Issues Discussed: Patient A + O x 1. She was agitated overnight and received PRN Ativan. She refused to take her PO antibiotics, which she needs for acute UTI. Patient continues to have chronic poor insight/judgment due to dementia in addition to periods of agitation. Medication Change: Yes (Increase Seroquel to 100 mg PO Daiily@1700) Medical Record Reviewed: Yes Consults ordered or reviewed: Medicine consult appreciated- patient receiving tx for UTI Mental Status Examination - Cognitive Function Orientation: Person Memory: Impaired Attention: Poor Concentration: Poor Association: Loose Fund of Knowledge: Poor Decription of patient's judgement and insights: Chronic poor I/J due to dementia - Mood Mood: Neutral - Affect Affect: Constricted - Speech Speech: Soft - Formal Thought Process Formal Thought Process: Loosening of associations Psychotic Thoughts and Behaviors: Denies AH/VH, but is observed talking to herself at times, unclear if she is responding to internal stimuli - Suicidal Ideation Suicidal Ideation: No - Homicidal Ideation Homicidal Ideation: No Goal/Treatment Plan - Goal/Treatment Plan Need for Continued Stay: Remain at risks for inpatient hospitalization, Severe functional impairment Progress Toward Problem(s) and Goals/Treatment Plan: Dementia w/ behavioral disturbances -Increase Seroquel to 100 mg PO Daily@1700 -Individual and group therapy -Psychoeducation -Medicine consult appreciated, patient currently being treated for UTI -Disposition planning Estimated Date of D/C: 05/29/17
[2017-05-26] MEDS: Insulin Regular 100 units/ml SC SCH ×4 (10:33→21:04)
[2017-05-26] MEDS: Pantoprazole 40 mg EC Tab PO SCH (12:01)
--- NOTE | 2017-05-27 08:20 | PCM.PYCHPN ---
Psychiatric Progress Note - Psychiatric Progress Note Patient seen today, length of contact: Patient evaluated, case discussed w/ team , chart reviewed Patient Chief Complaint: "I'm okay." Problems Identified/Issues Discussed: Patient A + O x 1. She was agitated overnight and received PRN Haldol. She continues to have intermittent periods of agitation which are worse at night. Patient continues to have chronic poor insight/judgment due to dementia in addition to periods of agitation. Medication Change: Yes (Change Seroquel to 100 mg PO HS) Medical Record Reviewed: Yes Consults ordered or reviewed: Medicine consult appreciated- patient receiving tx for UTI Mental Status Examination - Cognitive Function Orientation: Person Memory: Impaired Attention: Poor Concentration: Poor Association: Loose Fund of Knowledge: Poor Decription of patient's judgement and insights: Chronic poor I/J due to dementia - Mood Mood: Neutral - Affect Affect: Constricted - Speech Speech: Soft - Formal Thought Process Formal Thought Process: Loosening of associations Psychotic Thoughts and Behaviors: Denies AH/VH, but is observed talking to herself at times, unclear if she is responding to internal stimuli - Suicidal Ideation Suicidal Ideation: No - Homicidal Ideation Homicidal Ideation: No Goal/Treatment Plan - Goal/Treatment Plan Need for Continued Stay: Remain at risks for inpatient hospitalization, Severe functional impairment Progress Toward Problem(s) and Goals/Treatment Plan: Dementia w/ behavioral disturbances; patient needs continued hospitalization for treatment and safety -Continue Seroquel 100 mg PO HS; will titrate if clinically indicated -Individual and group therapy -Psychoeducation -Medicine consult appreciated, patient currently being treated for UTI -Disposition planning Estimated Date of D/C: 05/29/17
[2017-05-27] MEDS: Insulin Regular 100 units/ml SC SCH ×4 (08:59→21:10)
[2017-05-27] MEDS: Pantoprazole 40 mg EC Tab PO SCH (16:54)
--- NOTE | 2017-05-28 08:32 | PN ---
DATE: 05/27/2017 SUBJECTIVE: Patient seen and examined. Interim events noted. noted and appreciated. Psychiatric followup and interventions noted and appreciated. Patient remains in Geropsych Unit. Patient had periods of agitation last night requiring Haldol injection. Patient feels okay. Denies any specific complaint at this time. No chest pain. No shortness of breath. PHYSICAL EXAMINATION: GENERAL: Patient is in no acute distress. VITAL SIGNS: Stable. HEART: S1 and S2, normal, regular. LUNGS: Good bilateral air exchange. ABDOMEN: Soft, nontender. EXTREMITIES: No edema. No calf swelling. No tenderness. No acute ischemia. CENTRAL NERVOUS SYSTEM: Essentially unchanged. DIAGNOSTIC DATA: Accu-Cheks are acceptable. ASSESSMENT AND PLAN: Overall, patient is medically stable. Plan as ordered. We will twice a day. Case and plan discussed with the patient and [facility]. Ant Villalba MD
--- NOTE | 2017-05-28 08:46 | PCM.PYCHPN ---
Psychiatric Progress Note - Psychiatric Progress Note Patient seen today, length of contact: Patient evaluated, case discussed w/ team , chart reviewed Patient Chief Complaint: "I'm okay." Problems Identified/Issues Discussed: Patient A + O x 1. Patient continues to have periods of agitation and irritability. She has poor sleep. Patient continues to have chronic poor insight/judgment due to dementia in addition to periods of agitation. Medication Change: Yes (Stop Seroquel, switch to Risperdal) Medical Record Reviewed: Yes Consults ordered or reviewed: Medicine consult appreciated- patient receiving tx for UTI Mental Status Examination - Cognitive Function Orientation: Person Memory: Impaired Attention: Poor Concentration: Poor Association: Loose Fund of Knowledge: Poor Decription of patient's judgement and insights: Chronic poor I/J due to dementia - Mood Mood: Neutral - Affect Affect: Constricted - Speech Speech: Soft - Formal Thought Process Formal Thought Process: Loosening of associations Psychotic Thoughts and Behaviors: Denies AH/VH, but is observed talking to herself at times, unclear if she is responding to internal stimuli - Suicidal Ideation Suicidal Ideation: No - Homicidal Ideation Homicidal Ideation: No Goal/Treatment Plan - Goal/Treatment Plan Need for Continued Stay: Remain at risks for inpatient hospitalization, Severe functional impairment Progress Toward Problem(s) and Goals/Treatment Plan: Dementia w/ behavioral disturbances; patient needs continued hospitalization for treatment and safety -Stop Seroquel, start Risperdal 0.5 mg PO HS -Individual and group therapy -Psychoeducation -Medicine consult appreciated, patient currently being treated for UTI -Disposition planning Estimated Date of D/C: 06/02/17 - Smoking Cessation Smoking Cessation Initiated: No Reason for not providing: Not indicated
[2017-05-28] MEDS: Pantoprazole 40 mg EC Tab PO SCH (09:10)
[2017-05-28] MEDS: Insulin Regular 100 units/ml SC SCH ×4 (09:10→21:04)
--- NOTE | 2017-05-28 13:34 | PN ---
DATE: 05/28/2017 MEDICAL FOLLOWUP SUBJECTIVE: The patient seen and examined. Interim events noted. Psychiatric followup and interventions noted and appreciated. The patient remains in Geropsych Unit. Not . REVIEW OF SYSTEMS: Denies . PHYSICAL EXAMINATION: GENERAL: The patient is in no acute distress. VITAL SIGNS: Stable. HEART: S1 and S2, normal and regular. LUNGS: Good bilateral air exchange. ABDOMEN: Soft, nontender. EXTREMITIES: No edema. No calf swelling. No tenderness. No acute ischemia. CENTRAL NERVOUS SYSTEM: Essentially unchanged. DIAGNOSTIC DATA: Available diagnostic data reviewed. ASSESSMENT AND PLAN: Overall, the patient's general medical condition is stable. Plan as ordered. Ant Villalba MD
[2017-05-29] MEDS: Insulin Regular 100 units/ml SC SCH ×4 (08:33→21:10)
[2017-05-29] MEDS: Pantoprazole 40 mg EC Tab PO SCH (08:34)
--- NOTE | 2017-05-29 09:01 | CP.PCM.PN ---
<Amarjit Sawant - Last Filed: 05/29/17 11:46> Subjective - Date & Time of Evaluation Date of Evaluation: 05/29/17 Time of Evaluation: 07:10 - Subjective Subjective: Patient seen and examined bedside with attending Dr Villalba. Patient reports feeling well. Denies fever, dysuria, chest pain, SOB. no overnight events. UA and Urine cx ordered. Objective - Vital Signs/Intake and Output Vital Signs (last 24 hours): Temp Pulse Resp BP Pulse Ox 96.3 F L 62 18 150/63 95 05/28/17 16:14 05/29/17 08:39 05/28/17 16:14 05/29/17 08:39 05/22/17 19:41 - Medications Medications: Current Medications Acetaminophen (Tylenol 325mg Tab) 650 mg PO Q4 PRN PRN Reason: Pain, moderate (4-7) Last Admin: 05/29/17 01:28 Dose: 650 mg Al Hydrox/Mg Hydrox/Simethicone (Maalox Plus 30 Ml) 30 ml PO Q4 PRN PRN Reason: Dyspepsia Amlodipine Besylate (Norvasc) 5 mg PO DAILY [facility] Last Admin: 05/29/17 08:35 Dose: 5 mg Ampicillin (Ampicillin) 500 mg PO Q6 RAHAT PRN Reason: Protocol Stop: 05/30/17 16:01 Last Admin: 05/28/17 17:07 Dose: 500 mg Bismuth Subsalicylate (Pepto-Bismol) 524 mg PO Q4 PRN PRN Reason: Diarrhea Cyanocobalamin (Vitamin B12 1000 Mcg/Ml Inj) 1,000 mcg IM DAILY [facility] Last Admin: 05/29/17 08:34 Dose: 1,000 mcg Gabapentin (Neurontin) 400 mg PO HS [facility] Last Admin: 05/28/17 21:01 Dose: 400 mg Haloperidol Lactate (Haldol) 0.5 mg IM Q12 PRN PRN Reason: Agitation Insulin Human Regular (Humulin R) 0 units SC ACHS [facility] PRN Reason: Protocol Last Admin: 05/29/17 08:33 Dose: Not Given Lorazepam (Ativan) 0.5 mg PO HS PRN PRN Reason: Insomnia Stop: 06/05/17 21:37 Last Admin: 05/28/17 23:09 Dose: 0.5 mg Lorazepam (Ativan) 0.5 mg PO Q6 PRN PRN Reason: Anixety/Agitation Stop: 06/05/17 21:37 Last Admin: 05/27/17 19:55 Dose: 0.5 mg Magnesium Hydroxide (Milk Of Magnesia) 30 ml PO HS PRN PRN Reason: Constipation Metformin HCl (Glucophage) 850 mg PO BID [facility] Last Admin: 05/29/17 08:32 Dose: 850 mg Metoprolol Tartrate (Lopressor) 50 mg PO DAILY [facility] Last Admin: 05/29/17 08:39 Dose: 50 mg Pantoprazole Sodium (Protonix Ec Tab) 40 mg PO DAILY [facility] Last Admin: 05/29/17 08:34 Dose: 40 mg Risperidone (Risperdal Tab) 0.5 mg PO [facility] Last Admin: 05/28/17 21:02 Dose: 0.5 mg Sitagliptin Phosphate (Januvia) 100 mg PO DAILY [facility] Last Admin: 05/29/17 08:33 Dose: 100 mg Trazodone HCl (Desyrel) 25 mg PO [facility] Last Admin: 05/28/17 21:01 Dose: 25 mg - Labs Labs: 05/22/17 18:40 05/22/17 18:40 - Constitutional Appears: Non-toxic, No Acute Distress - Head Exam Head Exam: ATRAUMATIC, NORMOCEPHALIC - Eye Exam Eye Exam: Normal appearance - ENT Exam ENT Exam: Normal Exam - Respiratory Exam Respiratory Exam: Clear to Ausculation Bilateral, NORMAL BREATHING PATTERN. absent: Rhonchi, Wheezes - Cardiovascular Exam Cardiovascular Exam: REGULAR RHYTHM, +S1, +S2 - GI/Abdominal Exam GI & Abdominal Exam: Soft, Normal Bowel Sounds. absent: Tenderness - Back Exam Back Exam: NORMAL INSPECTION. absent: CVA tenderness (L), CVA tenderness (R) - Neurological Exam Neurological Exam: Alert, Awake, Oriented x3 - Psychiatric Exam Psychiatric exam: Normal Affect, Normal Mood - Skin Skin Exam: Intact, Normal Color Assessment and Plan (1) Dementia with behavioral disturbance Assessment & Plan: -on psych unit psych consult appreciated Status: Acute (2) UTI (urinary tract infection) Assessment & Plan: c/w Ampicillin -UA, Urine cx ordered today Status: Acute (3) Hypertension Assessment & Plan: c/w Norvasc, Lopressor Status: Chronic (4) DM (diabetes mellitus) Assessment & Plan: c/w Metformin, januvia -SSI Status: Chronic <Villalba,Ant K - Last Filed: 06/05/17 12:33> Objective - Vital Signs/Intake and Output Vital Signs (last 24 hours): Temp Pulse Resp BP Pulse Ox 97.3 F L 65 19 144/65 95 06/05/17 06:00 06/05/17 08:28 06/05/17 06:00 06/05/17 08:28 05/22/17 19:41 - Labs Labs: 05/22/17 18:40 05/22/17 18:40 Assessment and Plan - Assessment and Plan (Free Text) Assessment: Patient was personally seen and examined by me in rounds with residents. Available labs and diagnostic data reviewed. Case, patient's condition and management plan discussed with residents in rounds. Agree with resident's progress note. Plan: As ordered.
--- NOTE | 2017-05-29 12:20 | PCM.PYCHPN ---
Psychiatric Progress Note - Psychiatric Progress Note Patient seen today, length of contact: Patient evaluated, case discussed w/ team , chart reviewed Patient Chief Complaint: "I'm okay." Problems Identified/Issues Discussed: Patient A + O x 1. Patient continues to have periods of agitation and irritability, in the evening and received Ativan PRN. She continues to have poor sleep. Patient continues to have chronic poor insight/judgment due to dementia in addition to periods of agitation. Medication Change: Yes (Start Clonazepam 0.25 mg PO HS) Medical Record Reviewed: Yes Consults ordered or reviewed: Medicine consult appreciated- patient receiving tx for UTI Mental Status Examination - Cognitive Function Orientation: Person Memory: Impaired Attention: Poor Concentration: Poor Association: Loose Fund of Knowledge: Poor Decription of patient's judgement and insights: Chronic poor I/J due to dementia - Mood Mood: Neutral - Affect Affect: Constricted - Speech Speech: Soft - Formal Thought Process Formal Thought Process: Loosening of associations Psychotic Thoughts and Behaviors: Denies AH/VH - Suicidal Ideation Suicidal Ideation: No - Homicidal Ideation Homicidal Ideation: No Goal/Treatment Plan - Goal/Treatment Plan Need for Continued Stay: Remain at risks for inpatient hospitalization, Severe functional impairment Progress Toward Problem(s) and Goals/Treatment Plan: Dementia w/ behavioral disturbances; patient needs continued hospitalization for treatment and safety -Continue Risperdal 0.5 mg PO HS -Patient continues to have periods of agitation and anxiety, especially at night ; will start Clonazepam 0.25 mg PO HS and observe for safety -Individual and group therapy -Psychoeducation -Medicine consult appreciated, patient currently being treated for UTI -Disposition planning Estimated Date of D/C: 06/02/17 - Smoking Cessation Smoking Cessation Initiated: No Reason for not providing: Not indicated
[2017-05-29 17:02] LABS: SQUAMOUS EPITHIAL < 1 /hpf (0-5); URINE BILIRUBIN NEGATIVE (NEGATIVE); URINE BLOOD NEGATIVE (NEGATIVE); URINE CLARITY CLEAR (Clear); URINE COLOR YELLOW (YELLOW); URINE GLUCOSE (UA) NEG (Normal); URINE LEUKOCYTE ESTERASE NEG Leu/uL (Negative); URINE NITRATE NEGATIVE (NEGATIVE); URINE PROTEIN NEGATIVE (NEGATIVE); URINE UROBILINOGEN 0.2-1.0 mg/dL (0.2-1.0)
[2017-05-30] MEDS: Insulin Regular 100 units/ml SC SCH ×4 (08:17→22:09)
[2017-05-30] MEDS: Pantoprazole 40 mg EC Tab PO SCH (08:19)
--- NOTE | 2017-05-30 09:05 | PCM.PYCHPN ---
Psychiatric Progress Note - Psychiatric Progress Note Patient seen today, length of contact: Patient evaluated, case discussed w/ team , chart reviewed Patient Chief Complaint: "I'm okay." Problems Identified/Issues Discussed: Patient A + O x 1. Patient did not have any period of agitation last night. She had improved sleep. She has been calm and cooperative with staff. Medication Change: No Medical Record Reviewed: Yes Consults ordered or reviewed: Medicine consult appreciated- patient receiving tx for UTI Mental Status Examination - Cognitive Function Orientation: Person Memory: Impaired Attention: Poor Concentration: Poor Association: Loose Fund of Knowledge: Poor Decription of patient's judgement and insights: Chronic poor I/J due to dementia - Mood Mood: Neutral - Affect Affect: Constricted - Speech Speech: Soft - Formal Thought Process Formal Thought Process: Loosening of associations Psychotic Thoughts and Behaviors: Denies AH/VH - Suicidal Ideation Suicidal Ideation: No - Homicidal Ideation Homicidal Ideation: No Goal/Treatment Plan - Goal/Treatment Plan Need for Continued Stay: Remain at risks for inpatient hospitalization, Severe functional impairment Progress Toward Problem(s) and Goals/Treatment Plan: Dementia w/ behavioral disturbances; patient needs continued hospitalization for treatment and safety -Continue Risperdal 0.5 mg PO HS -Continue Clonazepam 0.25 mg PO HS -Individual and group therapy -Psychoeducation -Medicine consult appreciated, patient currently being treated for UTI -Disposition planning Estimated Date of D/C: 06/02/17
--- NOTE | 2017-05-30 11:46 | PN ---
DATE: 05/30/2017 SUBJECTIVE: The patient is seen and examined. Interim events noted. Psychiatric followup and intervention noted and appreciated. The patient remains in Geropsych unit. The patient feels okay. Denies any specific complaint. No chest pain, no shortness of breath. PHYSICAL EXAMINATION: GENERAL: The patient is in no acute distress. VITAL SIGNS: Stable. HEART: S1 and S2, normal and regular. LUNGS: Good bilateral air exchange. ABDOMEN: Soft and nontender. EXTREMITIES: No edema. No calf swelling. No tenderness. No acute ischemia. CENTRAL NERVOUS SYSTEM: Essentially unchanged. DIAGNOSTIC DATA: Available diagnostic data reviewed. Accu-Cheks are acceptable. Urinalysis is negative. ASSESSMENT: Overall, the patient is clinically stable. Urinary infection seems to be getting under control. PLAN: As ordered. Ant Villalba MD
[2017-05-31] MEDS: Insulin Regular 100 units/ml SC SCH ×4 (08:10→21:16)
[2017-05-31] MEDS: Pantoprazole 40 mg EC Tab PO SCH (08:13)
--- NOTE | 2017-05-31 09:11 | PCM.PYCHPN ---
Psychiatric Progress Note - Psychiatric Progress Note Patient seen today, length of contact: Patient evaluated, case discussed w/ team , chart reviewed Patient Chief Complaint: "I'm good." Problems Identified/Issues Discussed: Patient A + O x 1. At times the patient refuses medication but can be convinced by staff later to take the medications. Patient did not have any period of agitation last night. She had improved sleep. She has been calm and cooperative with staff. Medication Change: No Medical Record Reviewed: Yes Consults ordered or reviewed: Medicine consult appreciated- patient treated for UTI Mental Status Examination - Cognitive Function Orientation: Person Memory: Impaired Attention: Poor Concentration: Poor Association: Loose Fund of Knowledge: Poor Decription of patient's judgement and insights: Chronic poor I/J due to dementia - Mood Mood: Neutral - Affect Affect: Constricted - Speech Speech: Soft - Formal Thought Process Formal Thought Process: Loosening of associations Psychotic Thoughts and Behaviors: Denies AH/VH - Suicidal Ideation Suicidal Ideation: No - Homicidal Ideation Homicidal Ideation: No Goal/Treatment Plan - Goal/Treatment Plan Need for Continued Stay: Remain at risks for inpatient hospitalization, Severe functional impairment Progress Toward Problem(s) and Goals/Treatment Plan: Dementia w/ behavioral disturbances; patient needs continued hospitalization for treatment and safety -Continue Risperdal 0.5 mg PO HS -Continue Clonazepam 0.25 mg PO HS -Individual and group therapy -Psychoeducation -Medicine consult appreciated, patient treated for UTI -Disposition planning Estimated Date of D/C: 06/03/17
--- NOTE | 2017-05-31 13:25 | PN ---
DATE: 05/31/2017 SUBJECTIVE: The patient is seen and examined. Interim events noted. Psychiatric followup and intervention noted and appreciated. The patient remains in Geropsych Unit. Denies any specific complaint. No chest pain. No shortness of breath. PHYSICAL EXAMINATION GENERAL: The patient is in no acute distress. VITAL SIGNS: Stable. Physical exam is essentially unchanged. DIAGNOSTIC DATA: Available diagnostic data reviewed. Urinalysis and urine culture is negative. The patient's urinary tract infection is improved. ASSESSMENT AND PLAN: Overall, the patient's general medical condition is stable. Plan as ordered. Ant Villalba MD
[2017-06-01] MEDS: Insulin Regular 100 units/ml SC SCH ×4 (09:40→21:03)
[2017-06-01] MEDS: Pantoprazole 40 mg EC Tab PO SCH (09:42)
--- NOTE | 2017-06-01 10:14 | PCM.PYCHPN ---
Psychiatric Progress Note - Psychiatric Progress Note Patient seen today, length of contact: Patient evaluated, case discussed w/ team , chart reviewed Patient Chief Complaint: "I'm good." Problems Identified/Issues Discussed: Patient A + O x 1. Patient had periods of irritability last night. She received PRN medication for agitation and was aggressive towards staff. Medication Change: Yes (Change timing of Risperdal) Medical Record Reviewed: Yes Mental Status Examination - Cognitive Function Orientation: Person Memory: Impaired Attention: Poor Concentration: Poor Association: Loose Fund of Knowledge: Poor Decription of patient's judgement and insights: Chronic poor I/J due to dementia - Mood Mood: Neutral - Affect Affect: Constricted - Speech Speech: Soft - Formal Thought Process Formal Thought Process: Loosening of associations Psychotic Thoughts and Behaviors: Denies AH/VH - Suicidal Ideation Suicidal Ideation: No - Homicidal Ideation Homicidal Ideation: No Goal/Treatment Plan - Goal/Treatment Plan Need for Continued Stay: Remain at risks for inpatient hospitalization, Severe functional impairment Progress Toward Problem(s) and Goals/Treatment Plan: Dementia w/ behavioral disturbances; patient needs continued hospitalization for treatment and safety -Continue Risperdal 0.5 mg PO Daily@1700 -Continue Clonazepam 0.25 mg PO HS -Individual and group therapy -Psychoeducation -Medicine consult appreciated, patient treated for UTI -Disposition planning Estimated Date of D/C: 06/03/17
--- NOTE | 2017-06-01 12:38 | PN ---
DATE: 06/01/2017 SUBJECTIVE: The patient is seen and examined. Interim events noted. Consults noted and appreciated. Psychiatry followup and intervention noted and appreciated. Case discussed with psychiatrist. The patient might be discharged soon to subacute rehab. The patient feels okay. Denies any specific medical complaint. Denies any urinary symptoms. PHYSICAL EXAMINATION GENERAL: The patient is in no acute distress. VITAL SIGNS: Stable. Physical exam is essentially unchanged. DIAGNOSTIC DATA: Available diagnostic data reviewed. Urine culture and analysis is negative. ASSESSMENT AND PLAN: Overall, the patient is clinically stable. Plan as ordered. Ant Villalba MD
[2017-06-02] MEDS: Insulin Regular 100 units/ml SC SCH ×4 (08:02→21:15)
[2017-06-02] MEDS: Pantoprazole 40 mg EC Tab PO SCH (08:05)
--- NOTE | 2017-06-02 09:15 | PCM.PYCHPN ---
Psychiatric Progress Note - Psychiatric Progress Note Patient seen today, length of contact: Patient evaluated, case discussed w/ team , chart reviewed Patient Chief Complaint: "I'm good." Problems Identified/Issues Discussed: Patient A + O x 1. Patient has improved clinically. No periods of irritability or agitation. She has been compliant with medications. No adverse effects to medications noted. Medication Change: No Medical Record Reviewed: Yes Consults ordered or reviewed: Medicine consult appreciated- patient treated for UTI Mental Status Examination - Cognitive Function Orientation: Person Memory: Impaired Attention: Poor Concentration: Poor Association: Loose Fund of Knowledge: Poor Decription of patient's judgement and insights: Chronic poor I/J due to dementia - Mood Mood: Neutral - Affect Affect: Broad - Speech Speech: Soft - Formal Thought Process Formal Thought Process: Loosening of associations Psychotic Thoughts and Behaviors: Denies AH/VH - Suicidal Ideation Suicidal Ideation: No - Homicidal Ideation Homicidal Ideation: No Goal/Treatment Plan - Goal/Treatment Plan Progress Toward Problem(s) and Goals/Treatment Plan: Dementia w/ behavioral disturbances; patient is improving clinically, will likely refer to [facility] tomorrow. -Continue Risperdal 0.5 mg PO Daily@1700 -Continue Clonazepam 0.25 mg PO HS -Individual and group therapy -Psychoeducation -Medicine consult appreciated, patient treated for UTI -Disposition planning Estimated Date of D/C: 06/03/17 - Smoking Cessation Smoking Cessation Initiated: No Reason for not providing: Not indicated
--- NOTE | 2017-06-02 10:33 | PN ---
DATE: 06/02/2017 MEDICAL FOLLOWUP PROGRESS NOTE SUBJECTIVE: The patient is seen and examined. Interim events noted. Psychiatry followup and intervention noted and appreciated. The patient feels much better. No chest pain. No shortness of breath. No specific issue reported by nursing staff. PHYSICAL EXAMINATION: GENERAL: The patient is in no acute distress. VITAL SIGNS: Stable. HEART: S1 and S2, normal and regular. LUNGS: Good bilateral air exchange. ABDOMEN: Soft, nontender. EXTREMITIES: No edema. No calf swelling. No tenderness. No acute ischemia. CENTRAL NERVOUS SYSTEM: Essentially unchanged. DIAGNOSTIC DATA: Available diagnostic data reviewed. ASSESSMENT AND PLAN: Overall, the patient is medically stable and in optimal condition for transfer to subacute rehab. There is no contraindication medically for the patient to be treated for. Plan as ordered. Ant Villalba MD
--- NOTE | 2017-06-02 11:02 | PCM.BM ---
Treatment Plan Problems - Problems identified on initial assessmt Agitated/aggressive behavior Date Initiated: 05/22/17 Time Initiated: 21:54 Assessment reference: NA Status: Active Treatment assets and liabiliti Patient Assests: cooperative, good support system, negotiates basic needs Patient Liabilities: imparied memory - Milieu Protocol Maintain good personal hygiene: daily Encourage regular showers, daily Remind patient to perform daily oral care, every shift Assist patient to perform ADL's Conduct patient checks and document Observation sheet: Q15 minutes Maintain personal safety: every shift Educate patient to report safety concerns to staff, every shift Monitor environment for contraband/sharps Medication safety: Monitor for expected outcome, potential side effects: every shift, Assess barriers to learning: every shift, Assess readiness for medication education: every shift Milieu Narrative: Dementia w/ behavioral disturbances; patient is improving clinically, will likely refer to [facility] tomorrow. -Continue Risperdal 0.5 mg PO Daily@1700 -Continue Clonazepam 0.25 mg PO HS -Individual and group therapy -Psychoeducation -Medicine consult appreciated, patient treated for UTI -Disposition planning Family Contact Family contact: Patient agrees to contact Family contact name: Candice Crystal - daughter and STEFANIE Family contacted how many times per week?: 2 Family contact comment: [phone] - Outside Agency Dr. Jian Stnoe MD Care involvment: Information-sharing Agency contact number: [phone] [facility], [facility] Care involvment: Information-sharing Agency contact name: Coordinator, Stephanie Newberry Agency contact number: [phone] - Goals for Treatment Patient goals for treatment: Pt to be encouraged to attend activity and clinical groups 3-5x per week to identify at least 2 contributing factors to increased agitation, irritability, and aggression. Psycho-education to be provided to patient/family regarding benefits of medications and treatment adherence. Pt to be encouraged to participate in group milieu to develop effective coping skills to reduce aggression and reduce psychiatric hospitalizations. Coordinate discharge resource needs by providing referral for psychiatric treatment follow up in the community Discharge/Continuing Care - Education Needs Education Needs: Family Medication, Family Diagnosis/Disease Process, Family Coping Skills, Family Anger Management skills, Family Placement options, Family Community resources, Family Activities of Daily Living, Family Nutrition, Family Uses of Medical Equipment, Family Health Practices/Safety, Family Personal Hygiene/Grooming, Family Aftercare Safety Plan, Patient Medication, Patient Diagnosis/Disease Process, Patient Coping Skills, Patient Anger Management skills, Patient Placement options, Patient Community resources, Patient Activities of Daily Living, Patient Nutrition, Patient Uses of Medical Equipment, Patient Health Practices/Safety, Patient Personal Hygiene/Grooming, Patient Aftercare Safety Plan - Discharge Discharge Criteria: Tolerates medication w/o severe side effects, Free of agitation, Normal sleep pattern, Ability to care for self, Reduction of target symptoms Discharge to:: Home, With Family, Other (Home with [facility] services vs. LTC placement) - Additional Comments 05/26/17 08:01 Pt discussed in team meeting. Reason for admission reviewed and discussed. Pt's social and medical issues reviewed and discussed. Pt's medications reviewed and discussed. Reportedly, pt was non-compliant with medications at home. Tx plan reviewed and discussed. Extractor And Wringer Operator will continue to follow case. - Treatment Team Participation Patient/Family/SO Statement: Dementia w/ behavioral disturbances; patient is improving clinically, will likely refer to [facility] tomorrow. -Continue Risperdal 0.5 mg PO Daily@1700 -Continue Clonazepam 0.25 mg PO HS -Individual and group therapy -Psychoeducation -Medicine consult appreciated, patient treated for UTI -Disposition planning Discussed with Family/SO: No (Will be informed via telephone) Was Patient/Family/SO present at Treatment Team Meeting: No Treatment Plan Review - Problem Agitated/aggressive behavior Date Initiated: 05/22/17 Time Initiated: 21:54 Progress toward outcomes: improved (Pt has not displayed any aggresisve/ assaultive bx's on unit. Pt is less agitated and has periods of irritability at night time. Pt respodning to re-direction appropriately.) - Discharge / Continuing Care Discharge to:: Other ([facility] vs. LTC (Pt's daughter and POA is agreeable to [facility] per PT recommendations. Pt would benefit from LTC placement due to progressiveness of illness and extensive assistance with ADL's and needs.) Behavioral Health Services: Other (Follow up with in-house psychiatrist at accepting [facility] facility) Health Needs: Follow up care/test, Doctor appointments, Special equipment, Nutritional, Medications/Rx, Recreational/Social
[2017-06-03] MEDS: Insulin Regular 100 units/ml SC SCH ×4 (10:06→21:02)
[2017-06-03] MEDS: Pantoprazole 40 mg EC Tab PO SCH (10:21)
--- NOTE | 2017-06-03 10:44 | PCM.PYCHPN ---
Psychiatric Progress Note - Psychiatric Progress Note Patient seen today, length of contact: Patient evaluated, case discussed w/ team , chart reviewed Patient Chief Complaint: "I'm good." Problems Identified/Issues Discussed: Patient A + O x 1. Patient has improved clinically. No periods of irritability or agitation. She has been compliant with medications. No adverse effects to medications noted. Medication Change: No Medical Record Reviewed: Yes Mental Status Examination - Cognitive Function Orientation: Person Memory: Impaired Attention: Poor Concentration: Poor Association: Loose Fund of Knowledge: Poor Decription of patient's judgement and insights: Chronic poor I/J due to dementia - Mood Mood: Neutral - Affect Affect: Broad - Speech Speech: Soft - Formal Thought Process Formal Thought Process: Loosening of associations Psychotic Thoughts and Behaviors: Denies AH/VH - Suicidal Ideation Suicidal Ideation: No - Homicidal Ideation Homicidal Ideation: No Goal/Treatment Plan - Goal/Treatment Plan Progress Toward Problem(s) and Goals/Treatment Plan: Dementia w/ behavioral disturbances; patient is psychiatrically stable for referral to [facility]. -Continue Risperdal 0.5 mg PO Daily@1700 -Continue Clonazepam 0.25 mg PO Daily@2100 -Individual and group therapy -Psychoeducation -Medicine consult appreciated, patient completed treatment for UTI -Disposition planning Estimated Date of D/C: 06/04/17
--- NOTE | 2017-06-03 13:35 | PN ---
DATE: 06/03/2017 SUBJECTIVE: The patient is seen and examined. Interim events noted. Psychiatric followup and interventions noted and appreciated. Patient remains in Geropsych Unit. The patient . Denies any specific complaint. No urinary symptoms. PHYSICAL EXAMINATION: GENERAL: The patient is in no acute distress. VITAL SIGNS: Stable. HEART: S1 and S2 normal and regular. LUNGS: Good bilateral air exchange. ABDOMEN: Soft and nontender. EXTREMITIES: No edema. No calf swelling. No tenderness. No acute ischemia. CENTRAL NERVOUS SYSTEM: Essentially unchanged. DIAGNOSTIC DATA: Available diagnostic data reviewed. ASSESSMENT AND PLAN: Overall, the patient is clinically stable. Medically stable for transfer to subacute rehab. Ant Villalba MD
--- NOTE | 2017-06-04 08:04 | PCM.PYCHPN ---
Psychiatric Progress Note - Psychiatric Progress Note Patient seen today, length of contact: Patient evaluated, case discussed w/ team , chart reviewed Patient Chief Complaint: "I'm good." Problems Identified/Issues Discussed: Patient A + O x 1. Patient has improved clinically. No periods of irritability or agitation. She has been compliant with medications. No adverse effects to medications noted. Medication Change: No Medical Record Reviewed: Yes Mental Status Examination - Cognitive Function Orientation: Person Memory: Impaired Attention: Poor Concentration: Poor Association: Loose Fund of Knowledge: Poor Decription of patient's judgement and insights: Chronic poor I/J due to dementia - Mood Mood: Neutral - Affect Affect: Broad - Speech Speech: Soft - Formal Thought Process Formal Thought Process: Loosening of associations Psychotic Thoughts and Behaviors: Denies AH/VH - Suicidal Ideation Suicidal Ideation: No - Homicidal Ideation Homicidal Ideation: No Goal/Treatment Plan - Goal/Treatment Plan Progress Toward Problem(s) and Goals/Treatment Plan: Dementia w/ behavioral disturbances; patient is psychiatrically stable for referral to [facility]. -Continue Risperdal 0.5 mg PO Daily@1700 -Continue Clonazepam 0.25 mg PO Daily@2100 -Individual and group therapy -Psychoeducation -Medicine consult appreciated, patient completed treatment for UTI -Disposition planning Estimated Date of D/C: 06/05/17
[2017-06-04] MEDS: Insulin Regular 100 units/ml SC SCH ×3 (08:41→21:13)
[2017-06-04] MEDS: Pantoprazole 40 mg EC Tab PO SCH (08:43)
--- NOTE | 2017-06-04 11:10 | PN ---
DATE: 06/04/2017 SUBJECTIVE: Patient seen and examined. Interim events noted. Psychiatric followup and intervention noted and appreciated. Patient remains in Geropsych Unit. No specific medical complaint or issue reported by nursing staff. PHYSICAL EXAMINATION: GENERAL: Patient is in no acute distress. VITAL SIGNS: Stable. HEART: S1 and S2, normal and regular. LUNGS: Good bilateral air exchange. ABDOMEN: Soft, nontender. EXTREMITIES: No edema. No calf swelling. No tenderness. No acute ischemia. CENTRAL NERVOUS SYSTEM: Essentially unchanged. DIAGNOSTIC DATA: Available diagnostic data reviewed. ASSESSMENT AND PLAN: Overall, patient's general medical condition is stable. Plan as ordered. Ant Villalba MD
[2017-06-04 15:49] VITALS: RESP 19
[2017-06-05 06:14] VITALS: BP 144/65; PULSE 65; TEMP 97.3
--- NOTE | 2017-06-05 08:01 | PCM.PYCHDC ---
Mental Status Examination - Mental Status Examination Orientation: Person Memory: Impaired Mood: Neutral Affect: Broad Speech: Soft Attention: Poor Concentration: Poor Association: Loose Fund of Knowledge: Poor Formal Thought Process: Loosening of associations Description of patient's judgement and insight: Chronic poor I/J due to dementia Psychotic Thoughts and Behaviors: Denies AH/VH Suicidal Ideation: No Current Homicidal Ideation?: No Discharge Summary - Discharge Note Reason for Hospitalization: As per initial HPI note: SUMMARY: Patient is an 86 year old, female admitted to [facility] or stabilization secondary to worsening agitation and disorientation in the come in context of dementia dx. Patient brought into [facility] ED by daughter/POA after patient began throwing things, hitting the homemaker and yelling at family. Patient wandering out of the home, as per daughter. Patient reportedly yelling at people on the tv. Patient denies symptoms of depression/anxiety. Patient denies SI/HI. Patient denies AH/VH. Patient last hospitalized with [facility] 3NS10/31/16-11/07/16 for paranoia, visual hallucinations and worsening forgetfulness (wandering/leaving stove on). Patient was discharged home with in-home physical therapy ([facility]) and home care services ([facility]- [facility] for 32 hours/weekly prior to d/c). Adult Med Daycare discussed but patients family was not agreeable at the time, as per chart. Patient was referred to [facility] for OPS. Patient currently connected to Dr. Gan. No prior inpatient psychiatric hospitalization. Patient dx with dementia 2 years ago. Patient denies hx of suicide attempts- family confirms. As per medical records, patient found holding knife to chest prior to last admission. Agitation/aggressive behaviors relatively new or patient. Patient dx with diabetes. Patient resides with . Patient has a supportive family (4 adult daughters) who is significantly involved in patients treatment. Patient born and raised in [place]. Patient unable to provide chief underwriter with highest level of education completed. As per medical records, patient has partial high school education. 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 No hx of emotional, physical or sexual abuse reported. No hx of arrests or outstanding legal issues reported by patient or family. No hx of or current ETOH/illicit substance abuse reported. No known family hx of mental illness or suicide attempts. Patent anxious and confused. Patient easily irritable but redirectable. Patient unable to provide elaborate collateral secondary to dementia dx. Patient fairly tidy with fair ADLs. Patient denies SI/HI. Patient denies AH/ VH. Patent presents with loosening of associations and poor focus. Insight, coping skills and judgment impaired. Patient to continue stabilization on 3NP through medication management and group/supportive therapy. Patient to be provided with referral for appropriate level of aftercare. Patients family interested in possible LTC placement, as per chart. Laboratory Data: Abnormal Lab Results 06/04/17 06/05/17 15:23 06:12 POC Glucose (mg/dL) 144 H 92 Consultations:: List each consultation separately and include: 1. Reason for request. 2. Findings. 3. Follow-up Consultations: Medicine consult appreciated- patient treated for UTI Summary of Hospital Course include:: 1. Description of specific treatment plan utilized for patients during their course of treatmen. 2. Summarize the time- course for resolution of acute symptoms and/or regressed behaviors. 3. Describe issues identified and worked on during hospitalization. 4. Describe medication utilized. 5. Describe medical problems identified and treated. 6. Reassessment of suicide risk Summary of Hospital Course: Patient was admitted to the psychiatry unit. She was stabilized on Risperdal 0.5 mg PO HS and Clonazepam 0.25 mg PO HS. Individual and group therapy were provided. Psychoeducation provided to the family. Patient is psychiatrically stable for discharge. No current AH/VH/SI/HI. Patient has chronic cognitive deficits due to dementia. - Diagnosis (1) Dementia with behavioral disturbance Current Visit: Yes Status: Chronic - Final Diagnosis (DSM 5) Condition upon Discharge: STABLE DSM 5: Dementia w/ behavioral disturbances Disposition: TRANSF TO SNF Follow-up Treatment Plan: Dementia w/ behavioral disturbances; patient is psychiatrically stable for discharge. -Continue Risperdal 0.5 mg PO Daily@1700 -Continue Clonazepam 0.25 mg PO Daily@2100 -Individual and group therapy -Psychoeducation -Medicine consult appreciated, patient completed treatment for UTI -Discharge to [facility] - Smoking Cessation Smoking Cessation Medication prescribed: No Reason for not providing: Not indicated - Antipsychotic Medications Pt discharged on 2 or more routine antipsychotic medications: No
[2017-06-05] MEDS: Pantoprazole 40 mg EC Tab PO SCH (08:26)
[2017-06-05] MEDS: Insulin Regular 100 units/ml SC SCH (08:29)
--- NOTE | 2017-06-05 12:40 | PN ---
MEDICAL FOLLOWUP PROGRESS NOTE DATE OF SERVICE: 06/05/2017 SUBJECTIVE: The patient is seen and examined. Interim events are noted. Consults are noted and appreciated. Psychiatric followup and interventions are noted and appreciated. The patient is for possible discharge to subacute rehab center today. The patient feels okay, denies any specific complaints. No chest pain. No shortness of breath. PHYSICAL EXAMINATION: GENERAL: The patient is in no acute distress. VITAL SIGNS: Stable. HEART: S1 and S2, normal and regular. LUNGS: Good bilateral air exchange. ABDOMEN: Soft, nontender. EXTREMITIES: No edema. No calf swelling. No tenderness. No acute ischemia. 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 DIAGNOSTIC DATA: Available diagnostic data reviewed. ASSESSMENT: Overall, the patient is medically stable for transfer to subacute rehab based on medical contraindication for same. PLAN: As ordered. Ant Villalba MD
== END 2017-06-05 10:27 | DRG 57 ==
LOC: H.ER 17:42 → H.ERHOLD 19:00 → H.STEP 21:29
PROVIDERS: ADMIT Psychiatry & Neurology Psychiatry; ATTEND Psychiatry & Neurology Psychiatry
PROC: GZHZZZZ Group Psychotherapy (ICD-10-PCS; principal; 2017-05-22)
PROC: GZ58ZZZ Individual Psychotherapy, Cognitive-Behavioral (ICD-10-PCS; 2017-05-22)
DX: G30.9 Alzheimer's disease, unspecified (principal); F02.81 Dementia in other diseases classified elsewhere, unspecified severity, with behavioral disturbance; I48.91 Unspecified atrial fibrillation; F22 Delusional disorders; E11.9 Type 2 diabetes mellitus without complications; B95.1 Streptococcus, group B, as the cause of diseases classified elsewhere; N39.0 Urinary tract infection, site not specified; E78.00 Pure hypercholesterolemia, unspecified; J45.909 Unspecified asthma, uncomplicated; F32.9 Major depressive disorder, single episode, unspecified; K29.70 Gastritis, unspecified, without bleeding; F41.9 Anxiety disorder, unspecified; Z91.19 Patient's noncompliance with other medical treatment and regimen; I10 Essential (primary) hypertension; K57.30 Diverticulosis of large intestine without perforation or abscess without bleeding; M19.90 Unspecified osteoarthritis, unspecified site

== ENCOUNTER 2018-06-11 09:46 | Inpatient (IN) | payer OTHER ==
[2018-06-11 09:54] VITALS: BMI 36.7
--- NOTE | 2018-06-11 11:20 | ED PDOC ---
HPI: Trauma/Fall - HPI Time Seen by Provider: 06/11/18 10:34 Chief Complaint (Nursing): Trauma Chief Complaint (Provider): Trauma History Per: Patient History/Exam Limitations: clinical condition (Dementia) Onset/Duration Of Symptoms: Hrs Additional Complaint(s): 87 year old female, with a past medical history of dementia, presents to the ED with fall. History was not taken from patient because patient has severe dementia. History given from daughter, who is also patient's power of united states attorney, and 24 hour homemaker. According to them, patient fell last night. She lives with her who witnessed the fall but did not tell anyone. Daughter and homemaker state she was on the floor all night after she fell. Patient falls frequently because she ambulates with difficulty and needs assistance consistently. Patient walks very little at home and is usually in bed. Patient is not complaining of anything but history is limited due to patient's dementia. PMD: Dr. Chase Garcia Past Medical History Reviewed: Historical Data, Nursing Documentation, Vital Signs Vital Signs: Last Vital Signs Temp 97.7 F 06/11/18 09:54 Pulse 101 H 06/11/18 09:54 Resp 20 06/11/18 09:54 BP 156/66 H 06/11/18 09:54 Pulse Ox 98 06/11/18 09:54 - Medical History PMH: Alzheimer's Disease, Anxiety, Arthritis, Asthma, Atrial Fibrillation, Bronchitis, Dementia, Depression, Diabetes (type II), Diverticulitis, Gastritis, HTN, Hypercholesterolemia Denies: Anemia, Hepatitis, HIV, Chronic Kidney Disease, Seizures, Sexually Transmitted Disease - Surgical History Surgical History: Appendectomy (from previous chart, patient is unsure of what surguries she has had), Cholecystectomy (from previous chart, patient is unsure of what surguries she has had), Hernia Repair - Family History Family History: States: Unknown Family Hx - Home Medications Home Medications: Ambulatory Orders Medication Instructions Recorded RX: Metoprolol Tartrate [Lopressor] 50 mg PO DAILY 03/20/14 RX: Metformin HCl 850 mg PO BID 05/11/15 Furosemide [Lasix] 20 mg PO DAILY 06/11/18 RX: amLODIPine [Norvasc] 5 mg PO DAILY 06/11/18 RX: clonazePAM [Klonopin] 0.5 mg PO BID 06/11/18 RX: risperiDONE [RisperDAL Tab] 0.5 mg PO QPM 06/11/18 - Allergies Allergies/Adverse Reactions: Allergies Allergy/AdvReac Type Severity Reaction Status Date / Time No Known Allergies Allergy Verified 06/11/18 10:18 Review of Systems Review Of Systems: ROS cannot be obtained secondary to pt's inabilty to answer questions. (history limited due to patient's dementia) Physical Exam - Reviewed Nursing Documentation Reviewed: Yes Vital Signs Reviewed: Yes - Physical Exam Appears: Positive for: Non-toxic, No Acute Distress Head Exam: Positive for: ATRAUMATIC, NORMOCEPHALIC Skin: Positive for: Normal Color, Warm, Dry Eye Exam: Positive for: Normal appearance ENT: Positive for: Normal ENT Inspection Neck: Positive for: Normal, Painless ROM Cardiovascular/Chest: Positive for: Regular Rate, Rhythm Respiratory: Positive for: Normal Breath Sounds. Negative for: Wheezing, Respiratory Distress Gastrointestinal/Abdominal: Positive for: Normal Exam, Soft. Negative for: Tenderness Back: Positive for: Normal Inspection. Negative for: L CVA Tenderness, R CVA Tenderness Extremity: Positive for: Other (Pain with left leg raise; knees and hip normal). Negative for: Pedal Edema, Swelling Neurologic/Psych: Positive for: Alert (and awake), Oriented (x1 (at baseline)). Negative for: Motor/Sensory Deficits - Laboratory Results Result Diagrams: 06/11/18 11:15 06/11/18 11:15 - ECG ECG: Positive for: Interpreted By Me, Viewed By Me ECG Rhythm: Positive for: Normal QRS, Normal ST Segment, Atrial Fibrillation. Negative for: ST/T Changes Rate: 85 O2 Sat by Pulse Oximetry: 98 (RA) Pulse Ox Interpretation: Normal Medical Decision Making Medical Decision Making: Initial Impression: Fall Differential includes mechanical fall, less likely syncope. r/o rhabdomyolysis, left leg injury, and head injury Initial Plan: --Head CT --ECG --BMP --CPK --ED urine dipstick --CBC --Left knee X-ray --Accucheck --Left hip X-ray 11:[address] FINDINGS: Indication: Heavily motion artifact examination. Multiple series were performed to attempt to overcome this issue which were largely limited in success. HEMORRHAGE: No gross intracranial hemorrhage appreciable. BRAIN: Stable age related neuro degenerative findings comprised of atrophy and microangiopathy throughout the cerebrum as well as chronic lacune right thalamus. There has been a small chronic lobar infarction in the interval at the left occipital lobe. Lorenzana matter is otherwise unremarkable throughout the brain other than atrophy. VENTRICLES: Unremarkable. No hydrocephalus. CALVARIUM: Stable, nonfocal. No destructive bony lesion or displaced fracture identified including through the skullbase. PARANASAL SINUSES: Unremarkable as visualized. No significant inflammatory changes. MASTOID AIR CELLS: Unremarkable as visualized. No inflammatory changes. OTHER FINDINGS: None. IMPRESSION: Stable head CT including age-related degenerative findings, right the laminae chronic lacune and interval but chronic left occipital lobar infarct. No definite acute intracranial findings by standard CT criteria. Follow-up CT or MRI are available if clinically warranted. Motion artifacts grossly limit this exam however. 13:35 X-rays showed no acute findings. Scribe Attestation: Documented by Abner Jeffrey acting as a scribe for Kaitlyn Cheung MD. Provider Scribe Attestation: All medical record entries made by the Scribe were at my direction and personally dictated by me. I have reviewed the chart and agree that the record accurately reflects my personal performance of the history, physical exam, medical decision making, and the department course for this patient. I have also personally directed, reviewed, and agree with the discharge instructions and disposition. Disposition - Clinical Impression Clinical Impression: Fall, Syncope - Patient ED Disposition Is Patient to be Admitted: Yes Discussed With : Michael Perkins Doctor Will See Patient In The: ED Counseled Patient/Family Regarding: Studies Performed, Diagnosis - Disposition Disposition Time: 12:00 Condition: FAIR - Pt Status Changed To: Hospital Disposition Of: Observation - POA Present On Arrival: Falls Or Trauma
[2018-06-11 11:26] LABS: BASO % 0.3 % (0.0-2.0); HEMOGLOBIN 13.7 g/dL (12.0-16.0); LYMPH # 0.6 K/uL (1.0-4.3); LYMPH % 4.6 % (20.0-40.0); MEAN CELL VOLUME 92.3 fl (81.0-99.0); MEAN CORPUSCULAR HEMOGLOBIN 31.2 pg (27.0-31.0); MEAN CORPUSCULAR HGB CONC 33.8 g/dL (33.0-37.0); MEAN PLATELET VOLUME 8.2 fl (7.2-11.7); MONO # 0.5 K/uL (0.0-0.8); NEUT # 12.6 K/uL (1.8-7.0); NEUT % 91.1 % (50.0-75.0); NRBC % 0.1 % (0.0-0.0); PLATELET COUNT 313 K/uL (130-400); RBC 4.41 Mil/uL (3.80-5.20); WHITE BLOOD COUNT 13.8 K/uL (4.8-10.8)
[2018-06-11 11:44] LABS: BLOOD UREA NITROGEN 19 mg/dl (7-17); GFR NON-AFRICAN AMERICAN > 60
[2018-06-11 11:55] LABS: LYMPHOCYTE 8 % (20-50); MONOCYTE 3 % (0-10); NEUTROPHIL 89 % (42-75); PLATELET ESTIMATE NORMAL (NORMAL); TOTAL CELLS COUNTED 100
[2018-06-11 11:56] LABS: ANISOCYTOSIS SLIGHT; LARGE PLATELETS PRESENT; TEARDROP CELLS SLIGHT
--- NOTE | 2018-06-11 11:58 | CT ---
Date of service: 06/11/2018 PROCEDURE: CT HEAD WITHOUT CONTRAST. HISTORY: head injury? COMPARISON: Head CT without contrast 09/24/2016. TECHNIQUE: Axial computed tomography images were obtained through the head/brain without intravenous contrast. Radiation dose: Total exam DLP = 1198.73 mGy-cm. This CT exam was performed using one or more of the following dose reduction techniques: Automated exposure control, adjustment of the mA and/or kV according to patient size, and/or use of iterative reconstruction technique. FINDINGS: Indication: Heavily motion artifact examination. Multiple series were performed to attempt to overcome this issue which were largely limited in success. HEMORRHAGE: No gross intracranial hemorrhage appreciable. BRAIN: Stable age related neuro degenerative findings comprised of atrophy and microangiopathy throughout the cerebrum as well as chronic lacune right thalamus. There has been a small chronic lobar infarction in the interval at the left occipital lobe. Lorenzana matter is otherwise unremarkable throughout the brain other than atrophy. VENTRICLES: Unremarkable. No hydrocephalus. CALVARIUM: Stable, nonfocal. No destructive bony lesion or displaced fracture identified including through the skullbase. PARANASAL SINUSES: Unremarkable as visualized. No significant inflammatory changes. MASTOID AIR CELLS: Unremarkable as visualized. No inflammatory changes. OTHER FINDINGS: None. IMPRESSION: Stable head CT including age-related degenerative findings, right the laminae chronic lacune and interval but chronic left occipital lobar infarct. No definite acute intracranial findings by standard CT criteria. Follow-up CT or MRI are available if clinically warranted. Motion artifacts grossly limit this exam however.
--- NOTE | 2018-06-11 14:27 | RAD ---
PROCEDURE: Left Hip X-ray Radiographs. HISTORY: left leg pain fall COMPARISON: None. FINDINGS: BONES: Normal. No fracture. JOINTS: Symmetrical degenerative change. Mild in degree SOFT TISSUES: Normal. OTHER FINDINGS: Fecal impaction/constipation. IMPRESSION: No acute findings related to/ accounting for the clinical presentation.
--- NOTE | 2018-06-11 14:29 | RAD ---
Date of service: 06/11/2018 PROCEDURE: Left Knee Radiographs. HISTORY: Posttraumatic left knee pain COMPARISON: 02/16/2017 left knee FINDINGS: BONES: No visible fracture. JOINTS: Tricompartmental degenerative changes. JOINT EFFUSION: None. OTHER FINDINGS: None. IMPRESSION: No acute findings related to/ accounting for the clinical presentation. No significant interval change compared to the prior examination(s).
--- NOTE | 2018-06-11 14:49 | CARD ---
APPROVED REPORT Date of service: 06/11/2018 EKG Measurement Heart [id number] <Conclusion> Atrial fibrillation Left axis deviation Anteroseptal infarct, age undetermined Abnormal ECG
--- NOTE | 2018-06-11 17:42 | CP.PCM.HP ---
Past Patient History - Infectious Disease Hx of Infectious Diseases: None - Tetanus Immunizations Tetanus Immunization: Unknown - Past Medical History & Family History Past Medical History?: Yes - Past Social History Smoking Status: Never Smoked - CARDIAC Hx Atrial Fibrillation: Yes Hx Hypercholesterolemia: Yes Hx Hypertension: Yes - PULMONARY Hx Asthma: Yes Hx Bronchitis: Yes - NEUROLOGICAL Hx Alzheimer's Disease: Yes Hx Dementia: Yes Hx Seizures: No - HEENT Hx HEENT Problems: No - RENAL Hx Chronic Kidney Disease: No - ENDOCRINE/METABOLIC Hx Diabetes Mellitus Type 2: Yes - HEMATOLOGICAL/ONCOLOGICAL Hx Anemia: No Hx Human Immunodeficiency Virus (HIV): No - INTEGUMENTARY Hx Dermatological Problems: No - MUSCULOSKELETAL/RHEUMATOLOGICAL Hx Arthritis: Yes - GASTROINTESTINAL Hx Diverticulitis: Yes Hx Gastritis: Yes - GENITOURINARY/GYNECOLOGICAL Hx Sexually Transmitted Disorders: No - PSYCHIATRIC Hx Anxiety: Yes Hx Depression: Yes - SURGICAL HISTORY Hx Appendectomy: Yes (from previous chart, patient is unsure of what surguries she has had) Hx Cholecystectomy: Yes (from previous chart, patient is unsure of what surguries she has had) - ANESTHESIA Hx Anesthesia: Yes Hx Anesthesia Reactions: No Hx Malignant Hyperthermia: No Meds Allergies/Adverse Reactions: Allergies Allergy/AdvReac Type Severity Reaction Status Date / Time No Known Allergies Allergy Verified 06/11/18 10:18 Results - Vital Signs Recent Vital Signs: Last Vital Signs Temp 98.7 F 06/11/18 16:28 Pulse 83 06/11/18 16:28 Resp 16 06/11/18 16:28 BP 137/82 06/11/18 16:28 Pulse Ox 97 06/11/18 16:28 - Labs Result Diagrams: 06/11/18 11:15 06/11/18 11:15 Labs: Laboratory Results - last 24 hr 06/11/18 06/11/18 06/11/18 10:53 11:15 11:15 WBC 13.8 H D RBC 4.41 Hgb 13.7 Hct 40.7 MCV 92.3 MCH 31.2 H MCHC 33.8 RDW 14.0 Plt Count 313 MPV 8.2 Neut % (Auto) 91.1 H Lymph % (Auto) 4.6 L [place] % (Auto) 4.0 Eos % (Auto) 0.0 Baso % (Auto) 0.3 Neut # (Auto) 12.6 H Lymph # (Auto) 0.6 L [place] # (Auto) 0.5 Eos # (Auto) 0.0 Baso # (Auto) 0.0 Neutrophils % (Manual) 89 H Lymphocytes % (Manual) 8 L Monocytes % (Manual) 3 Platelet Estimate Normal Large Platelets Present Anisocytosis (manual) Slight Tear Drop Cells Slight Sodium 141 Potassium 4.5 Chloride 100 Carbon Dioxide 30 Anion Gap 16 BUN 19 H Creatinine 0.7 Est GFR ( Amer) > 60 Est GFR (Non-Af Amer) > 60 POC Glucose (mg/dL) 148 H Random Glucose 176 H Calcium 10.0 Total Creatine Kinase 89 Assessment & Plan (1) Syncope Status: Acute (2) Fall Status: Acute (3) Atrial fibrillation Status: Chronic (4) DM (diabetes mellitus) Status: Chronic (5) Dementia with behavioral disturbance Status: Chronic (6) Hypertension Status: Chronic
--- NOTE | 2018-06-11 23:18 | CARD ---
APPROVED REPORT Date of service: 06/11/2018 EXAM: Two-dimensional and M-mode echocardiogram with Doppler and color Doppler. Other Information Quality : GoodRhythm : Atrial Fibrillation INDICATION Atrial Fibrillation Syncope 2D DIMENSIONS IVSd1.16 (0.7-1.1cm)LVDd4.14 (3.9-5.9cm) LVOT Diameter1.92 (1.8-2.4cm)PWd1.04 (0.7-1.1cm) IVSs1.26 (0.8-1.2cm)LVDs3.80 (2.5-4.0cm) FS (%) 8.1 %PWs1.20 (0.8-1.2cm) M-Mode DIMENSIONS Left Atrium (MM)4.29 (2.5-4.0cm)IVSd0.88 (0.7-1.1cm) Aortic Root2.56 (2.2-3.7cm)LVDd5.12 (4.0-5.6cm) Aortic Cusp Exc.1.56 (1.5-2.0cm)PWd0.97 (0.7-1.1cm) IVSs1.47 cmFS (%) 30 % LVDs3.56 (2.0-3.8cm)PWs1.03 cm Mitral Valve MV E Peak Gr.123mmHgE/A ratio0.0 TDI E/Lateral E'0.0E/Medial E'0.0 Tricuspid Valve TR Peak [id number] [id number] Peak Gr.33mmHg [id number] LEFT VENTRICLE The left ventricle is normal size. There is normal left ventricular wall thickness. The left ventricular systolic function is normal. The estimated ejection fraction is 55-60% No regional wall motion abnormalities noted.. The left ventricular diastolic function cannot be assessed due to underlying atrial fibrillation. No left ventricle thrombus noted on this study. There is no ventricular septal defect visualized. There is no left ventricular aneurysm. There is no mass noted in the left ventricle. RIGHT VENTRICLE The right ventricle is normal size. There is normal right ventricular wall thickness. The right ventricular systolic function is normal. ATRIA The left atrium is mildly dilated. The right atrium size is normal. The interatrial septum is intact with no evidence for an atrial septal defect. AORTIC VALVE The aortic valve is normal in structure. No aortic regurgitation is present. There is no aortic valvular stenosis. There is no aortic valvular vegetation. MITRAL VALVE The mitral valve is normal in structure. There is no evidence of mitral valve prolapse. There is no mitral valve stenosis. There is moderate to severe mitral valve regurgitation noted. TRICUSPID VALVE The tricuspid valve is normal in structure. There is moderate tricuspid valve regurgitation noted. RVSP is calculated at 40 mm Hg. There is no tricuspid valve prolapse or vegetation. There is no tricuspid valve stenosis. PULMONIC VALVE The pulmonary valve is normal in structure. There is no pulmonic valvular regurgitation. There is no pulmonic valvular stenosis. GREAT VESSELS The aortic root is normal in size. The ascending aorta is normal in size. The pulmonary artery is normal. The IVC is normal in size and collapses >50% with inspiration. PERICARDIAL EFFUSION There is no pericardial effusion. There is no pleural effusion. <Conclusion> The estimated ejection fraction is 55-60% The left ventricular diastolic function cannot be assessed due to underlying atrial fibrillation. The left atrium is mildly dilated. There is moderate to severe mitral valve regurgitation noted. There is moderate tricuspid valve regurgitation noted. RVSP is calculated at 40 mm Hg. The IVC is normal in size and collapses >50% with inspiration.
[2018-06-11] MEDS: Insulin Lispro (humaLOG) 100 Units/ml Inj SC SCH (23:33)
[2018-06-12] MEDS: Enoxaparin 40 mg Syringe SC SCH (09:21)
[2018-06-12] MEDS: Insulin Lispro (humaLOG) 100 Units/ml Inj SC SCH ×4 (10:01→22:30)
[2018-06-12 14:29] LABS: SQUAMOUS EPITHIAL 4 /hpf (0-5); URINE BACTERIA MANY (<OCC); URINE BILIRUBIN NEGATIVE (NEGATIVE); URINE BLOOD NEGATIVE (NEGATIVE); URINE CLARITY CLOUDY (Clear); URINE COLOR AMBER (YELLOW); URINE GLUCOSE (UA) NEG (NEGATIVE); URINE LEUKOCYTE ESTERASE NEG Leu/uL (Negative); URINE PROTEIN 30 mg/dL (NEGATIVE)
[2018-06-13] MEDS: Insulin Lispro (humaLOG) 100 Units/ml Inj SC SCH ×4 (06:48→22:00)
[2018-06-13] MEDS: Enoxaparin 40 mg Syringe SC SCH (08:25)
[2018-06-13] MEDS: Sodium Chloride 0.45% 1,000 ML IV SCH (17:08)
--- NOTE | 2018-06-13 21:05 | CP.PCM.PN ---
Subjective - Date & Time of Evaluation Date of Evaluation: 06/12/18 Time of Evaluation: 07:10 Objective - Vital Signs/Intake and Output Vital Signs (last 24 hours): Temp Pulse Resp BP Pulse Ox 97.6 F 90 18 166/75 H 97 06/13/18 19:37 06/13/18 20:43 06/13/18 19:37 06/13/18 19:37 06/13/18 19:37 - Medications Medications: Current Medications Amlodipine Besylate (Norvasc) 5 mg PO DAILY [facility] Last Admin: 06/13/18 08:25 Dose: 5 mg Clonazepam (Klonopin) 0.5 mg PO BID [facility] Last Admin: 06/13/18 17:11 Dose: 0.5 mg Enoxaparin Sodium (Lovenox) 40 mg SC DAILY [facility]; Protocol Last Admin: 06/13/18 08:25 Dose: 40 mg Sodium Chloride (Sodium Chloride 0.45%) 1,000 mls @ 100 mls/hr IV .Q10H RAHAT Stop: 06/14/18 15:49 Ceftriaxone Sodium 1 gm/ (Sodium Chloride) 100 mls @ 100 mls/hr IVPB DAILY [facility]; Protocol Insulin Human Lispro (Humalog) 0 units SC ACHS [facility]; Protocol Last Admin: 06/13/18 17:09 Dose: Not Given Metformin HCl (Glucophage) 850 mg PO BID [facility] Last Admin: 06/13/18 17:10 Dose: 850 mg Metoprolol Tartrate (Lopressor) 50 mg PO DAILY [facility] Last Admin: 06/13/18 08:30 Dose: 50 mg Risperidone (Risperdal Tab) 0.5 mg PO QPM [facility] Last Admin: 06/13/18 18:49 Dose: 0.5 mg - Labs Labs: 06/11/18 11:15 06/11/18 11:15 Assessment and Plan (1) Syncope Status: Acute (2) Fall Status: Acute (3) Atrial fibrillation Status: Chronic (4) DM (diabetes mellitus) Status: Chronic (5) Dementia with behavioral disturbance Status: Chronic (6) Hypertension Status: Chronic
--- NOTE | 2018-06-13 21:06 | CP.PCM.PN ---
Subjective - Date & Time of Evaluation Date of Evaluation: 06/13/18 Time of Evaluation: 16:40 Objective - Vital Signs/Intake and Output Vital Signs (last 24 hours): Temp Pulse Resp BP Pulse Ox 97.6 F 90 18 166/75 H 97 06/13/18 19:37 06/13/18 20:43 06/13/18 19:37 06/13/18 19:37 06/13/18 19:37 - Medications Medications: Current Medications Amlodipine Besylate (Norvasc) 5 mg PO DAILY [facility] Last Admin: 06/13/18 08:25 Dose: 5 mg Clonazepam (Klonopin) 0.5 mg PO BID [facility] Last Admin: 06/13/18 17:11 Dose: 0.5 mg Enoxaparin Sodium (Lovenox) 40 mg SC DAILY [facility]; Protocol Last Admin: 06/13/18 08:25 Dose: 40 mg Sodium Chloride (Sodium Chloride 0.45%) 1,000 mls @ 100 mls/hr IV .Q10H [facility]HAT Stop: 06/14/18 15:49 Ceftriaxone Sodium 1 gm/ (Sodium Chloride) 100 mls @ 100 mls/hr IVPB DAILY [facility]; Protocol Insulin Human Lispro (Humalog) 0 units SC ACHS [facility]; Protocol Last Admin: 06/13/18 17:09 Dose: Not Given Metformin HCl (Glucophage) 850 mg PO BID [facility] Last Admin: 06/13/18 17:10 Dose: 850 mg Metoprolol Tartrate (Lopressor) 50 mg PO DAILY [facility] Last Admin: 06/13/18 08:30 Dose: 50 mg Risperidone (Risperdal Tab) 0.5 mg PO QPM [facility] Last Admin: 06/13/18 18:49 Dose: 0.5 mg - Labs Labs: 06/11/18 11:15 06/11/18 11:15 Assessment and Plan (1) Syncope Status: Acute (2) Fall Status: Acute (3) Atrial fibrillation Status: Chronic (4) DM (diabetes mellitus) Status: Chronic (5) Dementia with behavioral disturbance Status: Chronic (6) Hypertension Status: Chronic
[2018-06-14] MEDS: Sodium Chloride 0.45% 1,000 ML IV SCH ×2 (02:00→13:15)
[2018-06-14] MEDS: Insulin Lispro (humaLOG) 100 Units/ml Inj SC SCH ×4 (06:38→22:14)
[2018-06-14] MEDS: Enoxaparin 40 mg Syringe SC SCH (10:36)
[2018-06-14 12:19] LABS: MEAN CELL VOLUME 92.3 fl (81.0-99.0); MEAN CORPUSCULAR HEMOGLOBIN 31.1 pg (27.0-31.0); MEAN CORPUSCULAR HGB CONC 33.6 g/dL (33.0-37.0); RBC 4.51 Mil/uL (3.80-5.20); RED CELL DISTRIBUTION WIDTH 13.7 % (11.5-14.5)
[2018-06-14 12:29] LABS: BLOOD UREA NITROGEN 13 mg/dl (7-17); GFR NON-AFRICAN AMERICAN > 60
[2018-06-14] MEDS: Cephalexin Susp 250 MG/5 ML PO SCH (16:23)
[2018-06-15 00:22] VITALS: RESP 18
[2018-06-15] MEDS: Cephalexin Susp 250 MG/5 ML PO SCH ×2 (00:40→09:58)
--- NOTE | 2018-06-15 01:42 | CP.PCM.PN ---
Subjective - Date & Time of Evaluation Date of Evaluation: 06/14/18 Time of Evaluation: 07:10 Objective - Vital Signs/Intake and Output Vital Signs (last 24 hours): Temp Pulse Resp BP Pulse Ox 98.2 F 95 H 18 138/78 98 06/15/18 00:21 06/15/18 00:21 06/15/18 00:21 06/15/18 00:21 06/15/18 00:21 Intake and Output: 06/14/18 06/15/18 18:59 06:59 Intake Total 680 Balance 680 - Medications Medications: Current Medications Amlodipine Besylate (Norvasc) 5 mg PO DAILY [facility] Last Admin: 06/14/18 10:36 Dose: 5 mg Cephalexin Monohydrate (Keflex) 500 mg PO Q8 [facility]; Protocol Last Admin: 06/15/18 00:40 Dose: 500 dose Clonazepam (Klonopin) 0.5 mg PO BID [facility] Last Admin: 06/14/18 16:27 Dose: 0.5 mg Enoxaparin Sodium (Lovenox) 40 mg SC DAILY [facility]; Protocol Last Admin: 06/14/18 10:36 Dose: 40 mg Insulin Human Lispro (Humalog) 0 units SC [facility]; Protocol Last Admin: 06/14/18 22:14 Dose: Not Given Metformin HCl (Glucophage) 850 mg PO BID [facility] Last Admin: 06/14/18 16:23 Dose: 850 mg Metoprolol Tartrate (Lopressor) 50 mg PO DAILY [facility] Last Admin: 06/14/18 10:37 Dose: 50 mg Risperidone (Risperdal Tab) 0.5 mg PO QPM [facility] Last Admin: 06/14/18 18:15 Dose: 0.5 mg - Labs Labs: 06/14/18 12:15 06/14/18 12:15 Assessment and Plan (1) Syncope Status: Acute (2) Fall Status: Acute (3) Atrial fibrillation Status: Chronic (4) DM (diabetes mellitus) Status: Chronic (5) Dementia with behavioral disturbance Status: Chronic (6) Hypertension Status: Chronic
[2018-06-15] MEDS: Insulin Lispro (humaLOG) 100 Units/ml Inj SC SCH (06:40)
[2018-06-15 07:54] VITALS: BP 149/70; PULSE 70; TEMP 97.4; O2SAT 97
[2018-06-15] MEDS: Enoxaparin 40 mg Syringe SC SCH (10:00)
--- NOTE | 2018-06-15 12:12 | CP.PCM.DIS ---
Provider - Provider Date of Admission: 06/13/18 15:47 Attending physician: Michael Perkins MD Time Spent in preparation of Discharge (in minutes): 25 Diagnosis - Discharge Diagnosis (1) Syncope Status: Acute Priority: High (2) Fall Status: Acute (3) Atrial fibrillation Status: Chronic (4) DM (diabetes mellitus) Status: Chronic (5) Dementia with behavioral disturbance Status: Chronic (6) Hypertension Status: Chronic (7) Acute UTI (urinary tract infection) Status: Acute Hospital Course - Lab Results Lab Results: Micro Results 06/13/18 22:00 Urine Urine Culture - Final 50-100,000 CFU/ML. MULTIPLE SPECIES. SUGGEST REPEAT SPECIMEN. Most Recent Lab Values WBC 9.0 K/uL (4.8-10.8) 06/14/18 12:15 RBC 4.51 Mil/uL (3.80-5.20) 06/14/18 12:15 Hgb 14.0 g/dL (12.0-16.0) 06/14/18 12:15 Hct 41.7 % (34.0-47.0) 06/14/18 12:15 MCV 92.3 fl (81.0-99.0) 06/14/18 12:15 MCH 31.1 pg (27.0-31.0) H 06/14/18 12:15 MCHC 33.6 g/dL (33.0-37.0) 06/14/18 12:15 RDW 13.7 % (11.5-14.5) 06/14/18 12:15 Plt Count 315 K/uL (130-400) 06/14/18 12:15 MPV 8.2 fl (7.2-11.7) 06/11/18 11:15 Neut % (Auto) 91.1 % (50.0-75.0) H 06/11/18 11:15 Lymph % (Auto) 4.6 % (20.0-40.0) L 06/11/18 11:15 [place] % (Auto) 4.0 % (0.0-10.0) 06/11/18 11:15 Eos % (Auto) 0.0 % (0.0-4.0) 06/11/18 11:15 Baso % (Auto) 0.3 % (0.0-2.0) 06/11/18 11:15 Neut # (Auto) 12.6 K/uL (1.8-7.0) H 06/11/18 11:15 Lymph # (Auto) 0.6 K/uL (1.0-4.3) L 06/11/18 11:15 [place] # (Auto) 0.5 K/uL (0.0-0.8) 06/11/18 11:15 Eos # (Auto) 0.0 K/uL (0.0-0.7) 06/11/18 11:15 Baso # (Auto) 0.0 K/uL (0.0-0.2) 06/11/18 11:15 Neutrophils % (Manual) 89 % (42-75) H 06/11/18 11:15 Lymphocytes % (Manual) 8 % (20-50) L 06/11/18 11:15 Monocytes % (Manual) 3 % (0-10) 06/11/18 11:15 Platelet Estimate Normal (NORMAL) 06/11/18 11:15 Large Platelets Present 06/11/18 11:15 Anisocytosis (manual) Slight 06/11/18 11:15 Tear Drop Cells Slight 06/11/18 11:15 Sodium 138 mmol/l (132-148) 06/14/18 12:15 Potassium 4.0 MMOL/L (3.6-5.0) 06/14/18 12:15 Chloride 102 mmol/L (98-107) 06/14/18 12:15 Carbon Dioxide 26 mmol/L (22-30) 06/14/18 12:15 Anion Gap 14 (10-20) 06/14/18 12:15 BUN 13 mg/dl (7-17) 06/14/18 12:15 Creatinine 0.6 mg/dl (0.7-1.2) L 06/14/18 12:15 Est GFR ( Amer) > 60 06/14/18 12:15 Est GFR (Non-Af Amer) > 60 06/14/18 12:15 POC Glucose (mg/dL) 115 mg/dL (65-110) H 06/15/18 05:08 Random Glucose 143 mg/dL (65-105) H 06/14/18 12:15 Calcium 9.0 mg/dL (8.4-10.2) 06/14/18 12:15 Total Creatine Kinase 89 U/L (30-135) 06/11/18 11:15 Urine Color [place] (YELLOW) 06/12/18 14:00 Urine Clarity Cloudy (Clear) 06/12/18 14:00 Urine pH 7.0 (5.0-8.0) 06/12/18 14:00 Ur Specific [place] 1.024 (1.003-1.030) 06/12/18 14:00 Urine Protein 30 mg/dL (NEGATIVE) 06/12/18 14:00 Urine Glucose (UA) Neg mg/dL (NEGATIVE) 06/12/18 14:00 Urine Ketones Negative mg/dL (NEGATIVE) 06/12/18 14:00 Urine Blood Negative (NEGATIVE) 06/12/18 14:00 Urine Nitrate Positive (NEGATIVE) H 06/12/18 14:00 Urine Bilirubin Negative (NEGATIVE) 06/12/18 14:00 Urine Urobilinogen 4.0 mg/dL (0.2-1.0) H 06/12/18 14:00 Ur Leukocyte Esterase Neg [place]/uL (Negative) 06/12/18 14:00 Urine Microscopic WBC 2 /hpf (0-5) 06/12/18 14:00 Ur Squamous Epith Cells 4 /hpf (0-5) 06/12/18 14:00 Urine Bacteria Many (<OCC) H 06/12/18 14:00 Hyaline Casts 6-10 /hpf (0-2) H 06/12/18 14:00 Urine Yeast (Budding) Mod /hpf (NEGATIVE) H 06/12/18 14:00 Discharge Exam - Head Exam Head Exam: ATRAUMATIC, NORMOCEPHALIC Discharge Plan - Discharge Medications Prescriptions: Cephalexin [Keflex] 500 mg PO Q8 #21 capsule - Follow Up Plan Condition: FAIR Disposition: HOME/ ROUTINE Instructions: Preventing Falls in the Older Adult, Urinary Tract Infection, Adult (DC), Syncope (Fainting) (DC) Additional Instructions: will visit pt at home Referrals: Chase Garcia DO [Doctor Oste[facility]] - Michael Perkins MD [Staff Provider] -
== END 2018-06-15 12:30 | disposition home or self-care (01) | DRG 312 ==
LOC: H.ER 09:46 → OBSVTOIN 14:43 → UNDOADMOB 14:43 → INTOOBSV 14:43 → H.ERHOLD 14:43 → H.TEL 18:25 → H.ERHOLD 18:25 → H.TEL 06-13 15:47 → OBSVTOIN 06-13 15:47
PROVIDERS: ADMIT Internal Medicine; ATTEND Internal Medicine
DX: R55 Syncope and collapse (principal); F02.81 Dementia in other diseases classified elsewhere, unspecified severity, with behavioral disturbance; I48.2 Chronic atrial fibrillation; E11.9 Type 2 diabetes mellitus without complications; G30.9 Alzheimer's disease, unspecified; I10 Essential (primary) hypertension; E78.00 Pure hypercholesterolemia, unspecified; J45.909 Unspecified asthma, uncomplicated; F32.9 Major depressive disorder, single episode, unspecified; F41.9 Anxiety disorder, unspecified; K29.70 Gastritis, unspecified, without bleeding; Z79.84 Long term (current) use of oral hypoglycemic drugs; R29.6 Repeated falls